=== PATIENT | female | born 1955 | race Caucasian/White ===

== ENCOUNTER 2016-09-02 21:47 | Inpatient (IN) | payer OTHER, MEDICARE ==
[~2016-09-02] VITALS: Ht 167.6 cm; Wt 67.1 kg
[~2016-09-02 21:47] MED LIST: ALBU8I INH; ATEN-102 PO; DIAZ5 PO; ESTR1TAB PO; LEVO100T75 PO; LEXA20TA PO; MOME17I; ULTR50TA PO
--- NOTE | 2016-09-02 22:08 | PD ---
HPI Chief Complaint: Psychiatric Symptoms Time Seen by Provider: 22:08 Travel History International Travel<30 days: No Contact w/Intl Traveler<30days: No Traveled to known affect area: No History of Present Illness HPI 61-year-old female with history of migraines, the ED, mitral valve replacement, colostomy status post obstruction presents to the emergency department under [place] act her psychiatric evaluation. Patient has been demonstrating bizarre behavior. Patient is pacing the room and when asked what she is here for, she tells me that if I "am not likely need to get out." Patient is holding her colostomy that is all and states she is trying to "save as much fluid as she can for her body." An accurate history is unobtainable at this time. PFSH Past Medical History Arthritis: No Asthma: No Autoimmune Disease: No Anxiety: Yes Depression: Yes Heart Rhythm Problems: No Cancer: No Cardiovascular Problems: Yes (MITRAL VALVE PROLAPSED) High Cholesterol: No Chemotherapy: No Chest Pain: No Congestive Heart Failure: No COPD: No Cerebrovascular Accident: No Diabetes: No Endocrine: Yes Gastrointestinal Disorders: Yes GERD: Yes Genitourinary: No Headaches: Yes Hiatal Hernia: No Immune Disorder: No Implanted Vascular Access Dvce: Yes Musculoskeletal: Yes Neurologic: Yes Reproductive: No Respiratory: Yes Migraines: Yes Radiation Therapy: No Seizures: No Sickle Cell Disease: No Sleep Apnea: No Thyroid Disease: Yes Ulcer: No Menopausal: Yes : 1 Para: 1 Miscarriage: 0 : 0 Past Surgical History Abdominal Surgery: Yes (OSTOMY PLACE 6-13 SECONDARY TO BLOCKAGE) AICD: No Arteriovenous Shunt: No Cardiac Surgery: No Ear Surgery: No Endocrine Surgery: No Eye Surgery: No Genitourinary Surgery: No Gynecologic Surgery: No Hysterectomy: Yes (Total) Insulin Pump: No Joint Replacement: No Oral Surgery: No Pacemaker: No Thoracic Surgery: No Other Surgery: Yes (ILEOSTOMY 1979,REANASTOMOSIS OF ILEOSTOMY 1980) Social History Alcohol Use: Yes (Usually nightly...per pt...but not for past 3-4 nights.) Tobacco Use: Yes (1-2PPD usually - states none in 4-5 days.) Substance Use: No Allergies-Medications (Allergen,Severity, Reaction): Coded Allergies: Naproxen (Verified Allergy, Severe, Nausea/Vomiting, 09/02/16) Erythromycin (Verified Allergy, Mild, 09/02/16) SICK - Per pt. Ketoprofen (Verified Allergy, Mild, 09/02/16) SICK - Per pt. Darvon (Unverified Allergy, Unknown, 09/02/16) Per pt. Reported Meds & Prescriptions Reported Meds & Active Scripts Active Reported Zolpidem ER (Zolpidem Tartrate) 12.5 Mg Tab 12.5 Mg PO HS PRN Bupropion HCl 100 Mg Tab 300 Mg PO HS Nasonex Nasal [place] (Mometasone Furoate) 50 Mcg/Act Naspr 2 [place] EACH NARE DAILY Levothyroxine (Levothyroxine Sodium) 100 Mcg Tab 100 Mcg PO DAILY Estradiol 1 Mg Tab 1 Mg PO DAILY Lexapro (Escitalopram Oxalate) 20 Mg Tab 20 Mg PO DAILY Diazepam 5 Mg Tab 5 Mg PO BID Atenolol 50 Mg Tab 50 Mg PO DAILY Proair Hfa 8.5 GM Inh (Albuterol Sulfate) 90 Mcg/Act Aer 2 Puff INH Q4-6H PRN 108 mcg/actuation Review of Systems ROS Limitations: Altered Mental Status, Uncooperative, Psychotic Physical Exam Exam Limitations: Poor Historian, Uncooperative, Psychotic Narrative GENERAL: Well-nourished, well-developed female patient, ambulatory with a nonantalgic gait, no acute distress. Patient is responding to internal stimuli. She is responding to us with an appropriate answers. His platelets are behavior. SKIN: Warm and dry. HEAD: Normocephalic. EYES: No scleral icterus. No injection or drainage. NECK: Supple, trachea midline. No JVD or lymphadenopathy. CARDIOVASCULAR: Tachycardic rate and rhythm without murmurs, gallops, or rubs. RESPIRATORY: Breath sounds equal bilaterally. No accessory muscle use. GASTROINTESTINAL: Abdomen rotund, soft, non-tender. Right lower quadrant colostomy in place. MUSCULOSKELETAL: No cyanosis, or edema. BACK: Nontender without obvious deformity. No CVA tenderness. Data Data Last Documented VS Vital Signs Date Time Temp Pulse Resp B/P Pulse Ox O2 Delivery O2 Flow Rate FiO2 09/02/16 22:24 98.1 120 18 134/76 98 Orders Complete Blood Count With Diff (09/02/16 21:51) Basic Metabolic Panel (Bmp) (09/02/16 21:51) Urinalysis - C+S If Indicated (09/02/16 21:51) Drug Screen, Random Urine (09/02/16 21:51) Alcohol (Ethanol) (09/02/16 21:51) Psych Screen (09/02/16 21:51) Lorazepam Inj (Ativan Inj) (09/02/16 22:15) Labs Laboratory Tests Test 09/02/16 22:30 White Blood Count 19.9 TH/MM3 Red Blood Count 4.60 MIL/MM3 Hemoglobin 13.7 GM/DL Hematocrit 40.9 % Mean Corpuscular Volume 88.8 FL Mean Corpuscular Hemoglobin 29.7 PG Mean Corpuscular Hemoglobin 33.5 % Concent Red Cell Distribution Width 14.0 % Platelet Count 372 TH/MM3 Mean Platelet Volume 8.6 FL Neutrophils (%) (Auto) 86.3 % Lymphocytes (%) (Auto) 7.2 % Monocytes (%) (Auto) 5.6 % Eosinophils (%) (Auto) 0.3 % Basophils (%) (Auto) 0.6 % Neutrophils # (Auto) 17.2 TH/MM3 Lymphocytes # (Auto) 1.4 TH/MM3 Monocytes # (Auto) 1.1 TH/MM3 Eosinophils # (Auto) 0.1 TH/MM3 Basophils # (Auto) 0.1 TH/MM3 CBC Comment DIFF FINAL Differential Comment Sodium Level 136 MEQ/L Potassium Level 4.0 MEQ/L Chloride Level 100 MEQ/L Carbon Dioxide Level 21.3 MEQ/L Anion Gap 15 MEQ/L Blood Urea Nitrogen 12 MG/DL Creatinine 1.26 MG/DL Estimat Glomerular Filtration 43 ML/MIN Rate Random Glucose 107 MG/DL Calcium Level 9.5 MG/DL Ethyl Alcohol Level LESS THAN 3 MG/DL MDM Medical Decision Making Medical Screen Exam Complete: Yes Emergency Medical Condition: Yes Medical Record Reviewed: Yes Differential Diagnosis Mood disorder versus acute psychosis versus UTI versus personality disorder Narrative Course 61-year-old female presents to the emergency department for evaluation. Patient appears without distress however she is very bizarre, pacing, and uncooperative completely with exam. She is unable to provide an accurate history. CBC is with leukocytosis of 19. Urine has not yet been collected. 0100 patient is signed out to Sonido Garcia for further evaluation and disposition. No acute lab abnormality, she can be medically cleared for psychiatric screen. Diagnosis Primary Impression: Acute psychosis Condition: Stable Glenny Scott Sep 02, 2016 22:08
[2016-09-02] MEDS ORDERED: LORazepam 2 MG/ML VIAL IM ONE (22:15)
[2016-09-02 22:24] VITALS: BP 134/76; PULSE 120; RESP 18; TEMP 98.1; O2SAT 98
[2016-09-02 22:52] LABS: AUTOMATED NEUTROPHIL # 17.2 TH/MM3 (1.8-7.7); BASOPHIL # 0.1 TH/MM3 (0-0.2); BASOPHIL % 0.6 % (0.0-2.0); EOSINOPHIL # 0.1 TH/MM3 (0-0.4); EOSINOPHIL % 0.3 % (0.0-4.0); HEMATOCRIT 40.9 % (35.0-46.0); HEMO FLAGS DIFF FINAL; LYMPH % 7.2 % (9.0-44.0); LYMPHOCYTE # 1.4 TH/MM3 (1.0-4.8); MEAN CELL VOLUME 88.8 FL (80.0-100.0); MEAN CORPUSCULAR HEMOGLOBIN 29.7 PG (27.0-34.0); MEAN CORPUSCULAR HGB CONC 33.5 % (32.0-36.0); MONO % 5.6 % (0.0-8.0); NEUT % 86.3 % (16.0-70.0); PLATELET COUNT 372 TH/MM3 (150-450); WHITE BLOOD COUNT 19.9 TH/MM3 (4.0-11.0)
[2016-09-02] MEDS ORDERED: ALBUAER3 INH (23:00)
[2016-09-02] MEDS ORDERED: ATEN50TA PO (23:00)
[2016-09-02] MEDS ORDERED: DIAZ5TAB PO (23:00)
[2016-09-02] MEDS ORDERED: LEVO100T5 PO (23:00)
[2016-09-02] MEDS ORDERED: ESTR1TAB PO (23:00)
[2016-09-02] MEDS ORDERED: LEXA20TA PO (23:00)
[2016-09-02] MEDS ORDERED: MOME17I EACH NARE (23:00)
[2016-09-02 23:17] LABS: ANION GAP 15 MEQ/L (5-15); BICARBONATE 21.3 MEQ/L (21.0-32.0); BLOOD UREA NITROGEN 12 MG/DL (7-18); CHLORIDE 100 MEQ/L (98-107); GLOMERULAR FILTRATION RATE 43 ML/MIN (>89); SODIUM (NA) 136 MEQ/L (136-145)
[2016-09-02] MEDS ORDERED: ZOLP12.5 PO (23:33)
[2016-09-02] MEDS ORDERED: BUPR100T4 PO (23:33)
[2016-09-03 02:02] VITALS: BP 105/62; PULSE 103; RESP 18; O2SAT 98
[2016-09-03 04:33] LABS: BLOOD, URINE NEG (NEG); COMMENT (UR) CULT NOT INDICATED; CULTURE IF INDICATED CULT NOT INDICATED; GLUCOSE,URINE NEG (NEG); HYALINE CAST, URINE 1 /lpf (RARE); KETONE, URINE 10 mg/dL (NEG); MUCUS URINE FEW /lpf (OCC); NITRITE,URINE NEG (NEG); PH, URINE 5.5 (5.0-8.5); SQUAMOUS EPITHELIAL CELL URINE <1 /hpf (0-5); URINE COLOR YELLOW (YELLW/STRAW)
--- NOTE | 2016-09-03 05:08 | PD ---
Physical Exam Narrative Patient was signed out to me by Glenny TORRES pending UA results. Please see her H&P for full details. Data Data Last Documented VS Vital Signs Date Time Temp Pulse Resp B/P Pulse Ox O2 Delivery O2 Flow Rate FiO2 09/03/16 02:02 103 18 105/62 98 Room Air 09/02/16 22:24 98.1 Orders Complete Blood Count With Diff (09/02/16 21:51) Basic Metabolic Panel (Bmp) (09/02/16 21:51) Urinalysis - C+S If Indicated (09/02/16 21:51) Drug Screen, Random Urine (09/02/16 21:51) Alcohol (Ethanol) (09/02/16 21:51) Psych Screen (09/02/16 21:51) Lorazepam Inj (Ativan Inj) (09/02/16 22:15) Chest, Single Ap (09/03/16 05:02) Labs Laboratory Tests Test 09/02/16 09/03/16 22:30 03:56 White Blood Count 19.9 TH/MM3 Red Blood Count 4.60 MIL/MM3 Hemoglobin 13.7 GM/DL Hematocrit 40.9 % Mean Corpuscular Volume 88.8 FL Mean Corpuscular Hemoglobin 29.7 PG Mean Corpuscular Hemoglobin 33.5 % Concent Red Cell Distribution Width 14.0 % Platelet Count 372 TH/MM3 Mean Platelet Volume 8.6 FL Neutrophils (%) (Auto) 86.3 % Lymphocytes (%) (Auto) 7.2 % Monocytes (%) (Auto) 5.6 % Eosinophils (%) (Auto) 0.3 % Basophils (%) (Auto) 0.6 % Neutrophils # (Auto) 17.2 TH/MM3 Lymphocytes # (Auto) 1.4 TH/MM3 Monocytes # (Auto) 1.1 TH/MM3 Eosinophils # (Auto) 0.1 TH/MM3 Basophils # (Auto) 0.1 TH/MM3 CBC Comment DIFF FINAL Differential Comment Sodium Level 136 MEQ/L Potassium Level 4.0 MEQ/L Chloride Level 100 MEQ/L Carbon Dioxide Level 21.3 MEQ/L Anion Gap 15 MEQ/L Blood Urea Nitrogen 12 MG/DL Creatinine 1.26 MG/DL Estimat Glomerular Filtration 43 ML/MIN Rate Random Glucose 107 MG/DL Calcium Level 9.5 MG/DL Ethyl Alcohol Level LESS THAN 3 MG/DL Urine Color YELLOW Urine Turbidity CLEAR Urine pH 5.5 Urine Specific [place] 1.007 Urine Protein TRACE mg/dL Urine Glucose (UA) NEG mg/dL Urine Ketones 10 mg/dL Urine Occult Blood NEG Urine Nitrite NEG Urine Bilirubin NEG Urine Urobilinogen LESS THAN 2.0 MG/DL Urine Leukocyte Esterase NEG Urine RBC 1 /hpf Urine WBC LESS THAN 1 /hpf Urine Squamous Epithelial <1 /hpf Cells Urine Hyaline Casts 1 /lpf Urine Mucus FEW /lpf Microscopic Urinalysis Comment CULT NOT INDICATED Urine Opiates Screen POS Urine Barbiturates Screen NEG Urine Amphetamines Screen NEG Urine Benzodiazepines Screen POS Urine Cocaine Screen NEG Urine Cannabinoids Screen NEG MDM Supervised Visit with MATHIEU: No Narrative Course Patient was seen and evaluated. Answers questions appropriately. Patient denies any pain anywhere. Denies any chest pain, shortness of breath, abdominal pain, cough, nausea, vomiting, being on steroids recently. Labs were reviewed along with UA. No definitive source for the elevated white blood cell count. This may be stress-induced however I discussed patient with Dr. Argueta who recommends checking a chest x-ray prior to medically clearing the patient. Patient was seen and examined. Labs were obtained and reviewed. Chest x-ray was read by radiologist. Patient medically cleared for further treatment and evaluation by psych. Final disposition per psych. Diagnosis Primary Impression: Acute psychosis Additional Impression: Leukocytosis, unspecified Additional Instruction: Follow-up with her primary care physician next week for reevaluation of your elevated white blood cell count and possible hematology referral if needed. Condition: Stable Celso Garcia Sep 03, 2016 05:08
[2016-09-03 05:40] LABS: AMPHETAMINE, URINE NEG (NEG); BARBITURATES, URINE NEG (NEG); COCAINE, URINE NEG (NEG)
--- NOTE | 2016-09-03 05:57 | RADRPT ---
EXAM DATE/TIME: 09/03/2016 05:16 [facility] COMPARISON: No previous studies available for comparison. INDICATIONS : Shortness of breath. MEDICAL HISTORY : None. SURGICAL HISTORY : None. ENCOUNTER: Initial ACUITY: 1 day PAIN SCORE: 0/10 LOCATION: Bilateral chest FINDINGS: A single view of the chest demonstrates the lungs to be symmetrically aerated without evidence of mas s, infiltrate or effusion. The cardiomediastinal contours are unremarkable. Osseous structures are intact. CONCLUSION: No acute disease. Hima Estrada MD on September 03, 2016 at 5:55 Board Certified Radiologist. This report was verified electronically.
[2016-09-03 09:21] VITALS: BP 110/55; PULSE 85; RESP 16; TEMP 98.4; O2SAT 96
--- NOTE | 2016-09-03 09:27 | HHI.HP ---
Provisional Diagnosis Admission Date [place] I. Unspecified psychosis, r/o schizoaffective disorder, bipolar type, r/o bipolar disorder, most recent episode manic, with psychotic features. [place] II. Deferred [place] III. Hypothyroidism, chronic disease, [place] IV. Poor family and social support [place] V. 35 Certification of Person's Competence To Provide Express and Informed Consent I have personally examined Emeli Perera , a person being served at [facility] on, Sep 03, 2016 09:25. Express and informed consent means consent voluntarily given in writing, by a competent person, after sufficient explanation and disclosure of the subject matter involved to enable the person to make a knowing and willful decision without any element of force, fraud, deceit, duress, or other form of constraint or coercion. This person is 18 years of age or older, is not now known to be incompetent to consent to treatment with a guardian advocate, and does not have a health care surrogate or proxy currently making medical treatment decisions. I have found this person to be one of the following: [] Competent to provide express and informed consent, as defined above, for voluntary admission to this facility and is competent to provide express and informed consent for treatment. He/she has the consistent capacity to make well reasoned, willful, and knowing decisions concerning his or her medical or mental health treatment. The person fully and consistently understands the purpose of the admission for examination/placement and is fully capable of personally exercising all rights assured [place] Incompetent to provide express and informed consent to voluntary admission, and this is incompetent to provide express and informed consent to treatment. The person must be transferred to involuntary status and a petition for a guardian advocate filed with the Circuit Court. [X] Refusing to provide express and informed consent to voluntary admission but is competent to provide express and informed consent for treatment. The person must be discharged or transferred to involuntary status. Form shall be completed within 24 hours of a person's arrival at the receiving facility and filed in the clinical record of each person: 1. Admitted on a voluntary basis 2. Permitted to provide express and informed consent to his/her own treatment 3. Allowed to transfer from involuntary to voluntary status 4. Prior to permitting a person to consent to his or her own treatment after having been previously found incompetent to consent to treatment. History of Present Illness Capacity: Has Capacity HPI The patient is a 61-year-old woman, domicile with her sister, , but , unemployed, with uncertain uncertain psychiatric history, she denies, she denies previous hospitalizations, but she is on Escitalopram, Wellbutrin and Valium, but she refused to disclose the reason, medical history of migraines, chron disease, hypothyroidism, mitral valve replacement, colostomy status post obstruction, who presents to the emergency department under [place] act her psychiatric evaluation. On initial evaluation in the ER "Patient has been demonstrating bizarre behavior. Patient is pacing the room and when asked what she is here for, she tells me that if I "am not likely need to get out." Patient is holding her colostomy that is all and states she is trying to "save as much fluid as she can for her body." An accurate history is unobtainable at this time". On psychiatric evaluation she was guarded, poorly cooperative, disorganized and tangential. However, she was redirectable. Patient is states that the reason she was brought to the hospital is because she has an electrical current inside her body "telling me what to do, telling me sometimes to hurt people and other times to hurt myself", she also states that "I do not psych reword this electrical current is coming from, but sometimes I can see it running into the televisions, radio and other electronic devices", she says that she has been having this electrical current inside her body for about 4 weeks now. Patient described her mood as very happy, she port increased energy, decreased need to sleep, increased necessity to talk, and a sensation of "seeing every very around as a threat". She denies depressive symptoms, such as anhedonia, hopelessness, helplessness, suicidal and homicidal ideation. She denies visual and auditory hallucinations. On evaluation patient has decreased concentration capacity, she is talkative, but not pressured speech, frequent loosening of association, but she is fully oriented 3, without any gross cognitive impairment observed. Patient denies the use of drugs and alcohol. Review of Systems Constitutional: DENIES: Diaphoretic episodes, Fatigue, Fever, Weight gain, Weight loss, Chills, Dizziness, Change in appetite, Night Sweats Endocrine: DENIES: Abnorml menstrual pattern, Heat/cold intolerance, Polydipsia , Polyuria, Polyphagia Eyes: DENIES: Blurred vision, Diplopia, Eye inflammation, Eye pain, Vision loss , Photosensitivity, Double Vision Ears, nose, mouth, throat: DENIES: Tinnitus, Hearing loss, Vertigo, Nasal discharge, Oral lesions, Throat pain, Hoarseness, Ear Pain, Running Nose, Epistaxis, Sinus Pain, Toothache, Odynophagia Respiratory: DENIES: Apneas, Cough, Snoring, Wheezing, Hemoptysis, Sputum production, Shortness of breath Cardiovascular: DENIES: Chest pain, Palpitations, Syncope, Dyspnea on Exertion , PND, Lower Extremity Edema, Orthopnea, Claudication Genitourinary: DENIES: Abnormal vaginal bleeding, Dysmenorrhea, Dyspareunia, Sexual dysfunction, Urinary frequency, Urinary incontinence, Urgency, Hematuria , Dysuria, Nocturia, Vaginal discharge Musculoskeletal: DENIES: Joint pain, Muscle aches, Stiffness, Joint Swelling, Back pain, Neck pain Integumentary: DENIES: Abnormal pigmentation, Pruritus, Rash, Nail changes, Breast masses, Breast skin changes, Nipple discharge Hematologic/lymphatic: DENIES: Bruising, Lymphadenopathy Immunologic/allergic: DENIES: Eczema, Urticaria Neurologic: DENIES: Abnormal gait, Headache, Localized weakness, Paresthesias, Seizures, Speech Problems, Tremor, Poor Balance Psychiatric: COMPLAINS OF: Mood changes, Agitation, Delusions Past Family Social History Coded Allergies: Naproxen (Verified Allergy, Severe, Nausea/Vomiting, 09/02/16) Erythromycin (Verified Allergy, Mild, 09/02/16) SICK - Per pt. Ketoprofen (Verified Allergy, Mild, 09/02/16) SICK - Per pt. Darvon (Unverified Allergy, Unknown, 09/02/16) Per pt. Reported Medications Zolpidem ER 12.5 Mg Tab12.5 Mg PO HS PRN (INSOMNIA) Ref 0 09/02/16 Bupropion HCl 100 Mg Xyn023 Mg PO HS Ref 0 09/02/16 Mometasone Nasal [place] (Nasonex Nasal [place])50 Mcg/Act Naspr2 [place] EACH NARE DAILY #1 BOTTLE Ref 0 09/02/16 Levothyroxine 100 Mcg Ipr660 Mcg PO DAILY #30 TAB Ref 0 09/02/16 Estradiol 1 Mg Tab1 Mg PO DAILY #30 TAB Ref 0 09/02/16 Escitalopram (Lexapro)20 Mg Tab20 Mg PO DAILY #30 TAB Ref 0 09/02/16 Diazepam 5 Mg Tab5 Mg PO BID Ref 0 09/02/16 Atenolol 50 Mg Tab50 Mg PO DAILY #30 TAB Ref 0 09/02/16 Albuterol 8.5 GM Inh (Proair Hfa 8.5 GM Inh)90 Mcg/Act Aer2 Puff INH Q4-6H PRN ( SHORTNESS OF BREATH) #1 INHALER Ref 0 108 mcg/actuation 09/02/16 Current Medications Medications (Trade) Dose Ordered Sig/Evie Route Start Time Stop Time Status Last Admin (Ativan) 1 mg Q6H PRN PO 09/03/16 09:30 UNV (Ativan Inj) 1 mg Q6H PRN IM 09/03/16 09:30 UNV (Ativan) 0.5 mg Q12H PRN PO 09/03/16 09:30 UNV (Ativan Inj) 0.5 mg Q12H PRN IM 09/03/16 09:30 UNV (Tylenol) 650 mg Q4H PRN PO 09/03/16 09:30 UNV (Milk Of Magnesia Liq) 30 ml DAILY PRN PO 09/03/16 09:30 UNV (Mag-Al Plus Susp Liq) 30 ml Q6H PRN PO 09/03/16 09:30 UNV Physical Exam Vital Signs Vital Signs Date Time Temp Pulse Resp B/P Pulse Ox O2 Delivery O2 Flow Rate FiO2 09/03/16 02:02 103 18 105/62 98 Room Air 09/02/16 22:24 98.1 Mental Status Examination Appearance woman, age appearing, good hygiene, [facility], guarded, poorly cooperative Speech: Rapid Orientation: x3 Memory: Unremarkable Thought Process: Flight of Ideas, Goal Directed, Loose Association, Tangential Thought Content: Paranoid, Ideas of Reference Hallucination Type: None Attention and Concentration: Easily Distracted Suicidal Ideation: No Previous Suicide Attempts: No Homicidal Ideation: No Insight: Poor Judgement: Impulsive Affect: Irritable, Oppositional Mood: Irritable, Manic Motor Activity: Normal gait Assessment & Plan Problem List: (1) Bipolar disorder, current episode manic w/o psychotic features, severe Assessment & Plan: The patient is a 61-year-old woman with uncertain psychiatric history, patient is minimally cooperative, guarded and paranoid As per [place] act patient was found acting very disorganized, restless, manic, acting extremely bizarre On psychiatric evaluation patient seems to be internally preoccupied, with the delusion of being controlled by an electrical current telling her what to do, sometimes telling her to hurt people or hurt herself. She is also tangential, visibly disorganized, but lately related, very talkative , reporting elevated mood, decreased need to sleep and poor concentration capacity. She denies suicidal or homicidal ideation, she denies visual and auditory hallucinations. No aggressive behavior or agitation observed at this moment. No gross cognitive impairment observed, patient is fully oriented and history. No collateral information available at this moment to complete psychiatric assessment. At this moment patient represents a danger to self and others and needs psychiatric admission for stabilization and medication management. We will start olanzapine 2.5 mg twice a day for psychosis and mood stabilization , also will order olanzapine 5 mg IM when necessary aggressive behavior or agitation Will transfer to the psychiatric [facility] once medically cleared Patient has an elevated WBCs, this issue was discussed with primary ER team, but they medically cleared the patient and could not find any source for this WBCs alteration, Will consult hospitalist to reassess this issue, also will place consult for psychiatric second opinion. ICD Code: F31.13 Assessment & Plan Estimated LOS: Fransico Sen MD Sep 03, 2016 09:27
[2016-09-03] MEDS ORDERED: ALUMINUM/MAGNESIUM/SIMETH 30 ML CUP PO PRN (09:30)
[2016-09-03] MEDS ORDERED: LORazepam 0.5 MG TAB PO PRN (09:30)
[2016-09-03] MEDS ORDERED: LORazepam 2 MG/ML VIAL IM PRN ×2 (09:30)
[2016-09-03] MEDS ORDERED: OLANZapine IM 10 MG VIAL IM PRN (09:30)
[2016-09-03] MEDS ORDERED: MAGNESIUM HYDROXIDE SUSP 30 ML CUP PO PRN (09:30)
[2016-09-03] MEDS ORDERED: LORazepam 1 MG TAB PO PRN (09:30)
[2016-09-03] MEDS: ACETAMINOPHEN 325 MG TAB PO PRN (09:52)
[2016-09-03] MEDS ORDERED: SODIUM CHLOR 0.9% 1000 ML INJ 1,000 ML IV ONE (12:30)
--- NOTE | 2016-09-03 13:00 | PD.CONS ---
HPI Service [facility] Consult Requested By Psychiatric services Reason for Consult Leukocytosis Primary Care Physician No Primary Care Physician Diagnoses: History of Present Illness This is a 61-year-old female patient with past medical history which includes Crohn's disease with ostomy placement, hypothyroidism, mitral valve prolapse status post mitral valve replacement, hypertension, irritable bowel syndrome. Patient was brought into the emergency department under [place] act is currently admitted to inpatient psychiatric center we have been consulted for assistance with evaluation of leukocytosis white blood cell count noted to be at 19.9 with neutrophil 86.3%, UA negative leukocyte esterase, chest x-ray reviewed no acute process identified. Creatinine 1.26 GFR 43 last renal indices in 2013 revealed creatinine of 0.63 and GFR of 97. Patient reports that when she gets like, "this," she does not eat much reports she has eaten proximally once in the past 3 days also reports she is not drinking very much. Patient denies fevers chills cough congestion sore throat chest pain nausea vomiting abdominal pain diarrhea constipation. Also there are no open wounds identified on skin exam. Review of Systems Other All other systems reviewed and negative except as mentioned in history of present illness Past Family Social History Allergies: Coded Allergies: Naproxen (Verified Allergy, Severe, Nausea/Vomiting, 09/02/16) Erythromycin (Verified Allergy, Mild, 09/02/16) SICK - Per pt. Ketoprofen (Verified Allergy, Mild, 09/02/16) SICK - Per pt. Darvon (Unverified Allergy, Unknown, 09/02/16) Per pt. Past Medical History Crohn's disease with ostomy placement, hypothyroidism, mitral valve prolapse status post mitral valve replacement, hypertension, irritable bowel syndrome Past Surgical History Ileostomy with reversal and later redo ostomy 2012, appendectomy, tonsillectomy, hysterectomy and mitral valve replacement Reported Medications Zolpidem ER (Zolpidem Tartrate) 12.5 Mg Tab 12.5 Mg PO HS PRN Bupropion HCl 100 Mg Tab 300 Mg PO HS Nasonex Nasal [place] (Mometasone Furoate) 50 Mcg/Act Naspr 2 [place] EACH NARE DAILY Levothyroxine (Levothyroxine Sodium) 100 Mcg Tab 100 Mcg PO DAILY Estradiol 1 Mg Tab 1 Mg PO DAILY Lexapro (Escitalopram Oxalate) 20 Mg Tab 20 Mg PO DAILY Diazepam 5 Mg Tab 5 Mg PO BID Atenolol 50 Mg Tab 50 Mg PO DAILY Proair Hfa 8.5 GM Inh (Albuterol Sulfate) 90 Mcg/Act Aer 2 Puff INH Q4-6H PRN 108 mcg/actuation Family History Positive for father having heart disease Social History Patient reports she usually has 2-3 alcoholic drinks per day Patient reports she does smoke the past 18 years 2 packs last her approximately one week Physical Exam Vital Signs Vital Signs Date Time Temp Pulse Resp B/P Pulse Ox O2 Delivery O2 Flow Rate FiO2 09/03/16 09:21 98.4 85 16 110/55 96 Room Air 09/03/16 02:02 103 18 105/62 98 Room Air 09/02/16 22:24 98.1 120 18 134/76 98 Physical Exam GENERAL: This is a well-nourished, well-developed patient, in no apparent distress. SKIN: No rashes, ecchymoses or lesions. Cool and dry. HEAD: Atraumatic. Normocephalic. No temporal or scalp tenderness. EYES: Extraocular motions intact. No scleral icterus. No injection or drainage. ENT: Nose without bleeding, purulent drainage or septal hematoma. Throat without erythema, tonsillar hypertrophy or exudate. Uvula midline. Airway patent. NECK: Trachea midline. No JVD or lymphadenopathy. Supple, nontender, no meningeal signs. CARDIOVASCULAR: Regular rate and rhythm without murmurs, gallops, or rubs. RESPIRATORY: Clear to auscultation. Breath sounds equal bilaterally. No wheezes , rales, or rhonchi. GASTROINTESTINAL: Abdomen soft, non-tender, nondistended. Ostomy in place with soft/liquid brown stool present MUSCULOSKELETAL: Extremities without clubbing, cyanosis, or edema. No joint tenderness, effusion, or edema noted. No calf tenderness. Negative Homans sign bilaterally. NEUROLOGICAL: Awake and alert. Motor and sensory grossly within normal limits. Five out of 5 muscle strength in all muscle groups. Normal speech. Laboratory Laboratory Tests Test 09/02/16 09/03/16 22:30 03:56 White Blood Count 19.9 Red Blood Count 4.60 Hemoglobin 13.7 Hematocrit 40.9 Mean Corpuscular Volume 88.8 Mean Corpuscular Hemoglobin 29.7 Mean Corpuscular Hemoglobin 33.5 Concent Red Cell Distribution Width 14.0 Platelet Count 372 Mean Platelet Volume 8.6 Neutrophils (%) (Auto) 86.3 Lymphocytes (%) (Auto) 7.2 Monocytes (%) (Auto) 5.6 Eosinophils (%) (Auto) 0.3 Basophils (%) (Auto) 0.6 Neutrophils # (Auto) 17.2 Lymphocytes # (Auto) 1.4 Monocytes # (Auto) 1.1 Eosinophils # (Auto) 0.1 Basophils # (Auto) 0.1 CBC Comment DIFF FINAL Differential Comment Sodium Level 136 Potassium Level 4.0 Chloride Level 100 Carbon Dioxide Level 21.3 Anion Gap 15 Blood Urea Nitrogen 12 Creatinine 1.26 Estimat Glomerular Filtration 43 Rate Random Glucose 107 Calcium Level 9.5 Ethyl Alcohol Level LESS THAN 3 Urine Color YELLOW Urine Turbidity CLEAR Urine pH 5.5 Urine Specific [place] 1.007 Urine Protein TRACE Urine Glucose (UA) NEG Urine Ketones 10 Urine Occult Blood NEG Urine Nitrite NEG Urine Bilirubin NEG Urine Urobilinogen LESS THAN 2.0 Urine Leukocyte Esterase NEG Urine RBC 1 Urine WBC LESS THAN 1 Urine Squamous Epithelial <1 Cells Urine Hyaline Casts 1 Urine Mucus FEW Microscopic Urinalysis Comment CULT NOT INDICATED Urine Opiates Screen POS Urine Barbiturates Screen NEG Urine Amphetamines Screen NEG Urine Benzodiazepines Screen POS Urine Cocaine Screen NEG Urine Cannabinoids Screen NEG Result Diagram: 09/02/16 2230 09/02/16 2230 Imaging Last Impressions Chest X-Ray 09/03/16 0502 Signed Impressions: Service Date/Time: Monday, September 03, 2016 05:16 - CONCLUSION: No acute disease. Hima Estrada MD Assessment and Plan Assessment and Plan This is a 61-year-old female patient with past medical history which includes Crohn's disease with ostomy placement, hypothyroidism, mitral valve prolapse status post mitral valve replacement, hypertension, irritable bowel syndrome. Patient was brought into the emergency department under [place] act is currently admitted to inpatient psychiatric center we have been consulted for assistance with evaluation of leukocytosis white blood cell count noted to be at 19.9 with neutrophil 86.3%, UA negative leukocyte esterase, chest x-ray reviewed no acute process identified. Creatinine 1.26 GFR 43 last renal indices in 2013 revealed creatinine of 0.63 and GFR of 97 Leukocytosis-patient is afebrile UA reviewed by myself as well as Dr. Key negative leukocyte esterase- although ketones are present, chest x-ray also reviewed by myself as well as Dr. Key no acute process identified Likely related to dehydration as patient has not been eating or drinking for the past 3 days 1 L fluid bolus before patient goes to the psychiatric center Encourage by mouth fluid intake once patient does arrive to psychiatric center Acute kidney injury likely related to dehydration- give 1 L fluid bolus and encourage by mouth fluid intake Hypothyroidism restart home Synthroid dose 100 mcg daily check TSH Hypertension resume patient's home metoprolol 50 mg twice a day DVT prophylaxis patient is ambulatory Discussed with ER provider, RN and patient Written by Yamilka Early, acting as scribe for Dr. Key on 09/03/16 at 12:59. The documentation accurately reflects the work performed [id number] by me on 09/03/16 at 12:59 Yamilka Early Sep 03, 2016 13:00 Ramakrishna Key MD Sep 04, 2016 14:21
[2016-09-03 13:03] VITALS: BP 105/72; PULSE 80; RESP 16; O2SAT 98
[2016-09-03 14:38] VITALS: BP 102/56; PULSE 86; RESP 18; TEMP 98.1; O2SAT 98
[2016-09-03 19:13] VITALS: BP 98/61; PULSE 86; RESP 18; TEMP 98.2; O2SAT 86
[2016-09-03] MEDS: OLANZapine 2.5 MG TAB PO SCH (20:47)
[2016-09-04 05:30] VITALS: BP 89/54; PULSE 62; RESP 17; TEMP 98.2; O2SAT 98
[2016-09-04] MEDS: ESTRADIOL 1 MG TAB PO SCH (08:26)
[2016-09-04] MEDS: OLANZapine 2.5 MG TAB PO SCH ×2 (08:27→21:34)
[2016-09-04] MEDS: LEVOTHYROXINE SODIUM 100 MCG TAB PO SCH (08:27)
[2016-09-04] MEDS ORDERED: ATENOLOL 50 MG TAB PO SCH (09:00)
[2016-09-04 09:10] LABS: AUTOMATED NEUTROPHIL # 5.8 TH/MM3 (1.8-7.7); BASOPHIL # 0.1 TH/MM3 (0-0.2); BASOPHIL % 1.1 % (0.0-2.0); EOSINOPHIL # 0.4 TH/MM3 (0-0.4); EOSINOPHIL % 4.3 % (0.0-4.0); HEMATOCRIT 41.4 % (35.0-46.0); HEMO FLAGS DIFF FINAL; LYMPH % 17.1 % (9.0-44.0); LYMPHOCYTE # 1.4 TH/MM3 (1.0-4.8); MEAN CELL VOLUME 91.4 FL (80.0-100.0); MEAN CORPUSCULAR HEMOGLOBIN 30.1 PG (27.0-34.0); MEAN CORPUSCULAR HGB CONC 32.9 % (32.0-36.0); MONO % 7.1 % (0.0-8.0); NEUT % 70.4 % (16.0-70.0); PLATELET COUNT 283 TH/MM3 (150-450); RED BLOOD COUNT 4.52 MIL/MM3 (4.00-5.30); RED CELL DISTRIBUTION WIDTH 14.3 % (11.6-17.2); WHITE BLOOD COUNT 8.3 TH/MM3 (4.0-11.0)
[2016-09-04 09:31] LABS: ANION GAP 10 MEQ/L (5-15); BICARBONATE 22.5 MEQ/L (21.0-32.0); BLOOD UREA NITROGEN 14 MG/DL (7-18); CHLORIDE 106 MEQ/L (98-107); GLOMERULAR FILTRATION RATE 72 ML/MIN (>89); POTASSIUM 3.7 MEQ/L (3.5-5.1); SODIUM (NA) 138 MEQ/L (136-145)
[2016-09-04 09:41] LABS: HDL CHOLESTEROL 86.3 MG/DL (40.0-60.0); LDL CHOLESTEROL 107 MG/DL (0-99)
[2016-09-04 10:10] VITALS: BP 98/60; PULSE 71; RESP 16; TEMP 98.3; O2SAT 96
--- NOTE | 2016-09-04 11:59 | HHI.PYPN ---
Subjective Remarks Patient seen and examined with nursing staff. Please note that this document also serves is my second opinion for involuntary psychiatric hospitalization under the Polanco act. Chart reviewed. I note the patient was seen in consultation by Dr. Beltrán for auditory hallucinations and 2014. Case discussed with nursing staff who reports that patient continues to believe that electrical current is coming to hurt her in some way. On my examination today, patient reports that she "feels like someone is working on me and trying to straighten things out." She denies audiovisual hallucinations but says "if I'm focused on a positive thing, I hear some music. If I am focused on a negative thing, it could be worse on my body." She says that she came into the hospital because she feared for her life but "decided it wasn't really happening." She denies any homicidal ideation and denies any suicidal ideation but says that when she was feeling so acutely distressed she did contemplate ending her life. She cites several psychosocial stressors including her son's seeking a liver and kidney transplant as well as a pending divorce. The remainder of the psychiatric ROS is negative. Past psychiatric history: Patient denies any history of psychiatric illness, although I do see that she had a consultation with Dr. Beltrán as I said. Family history: Patient reports family history of bipolar disorder in the mother 's side of the family. Her maternal aunt and uncle also reportedly killed themselves. Chemical dependency history: Patient reports that she drinks 2 or 3 mixed drinks a night. No reported history of blackouts, DTs or seizures. Denies other substance use. Social history: Patient is somewhat evasive here. She reports that she lives alone. She is and seeking a divorce. 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 Past medical history: Includes a history of Crohn's and hypothyroidism. Review of Systems ROS Limitations: Poor Historian Other No reported somatic complaints today. Patient does have a colostomy. Objective Alert: Yes [place]: Person, Place, Date Mood: Anxious Affect: Blunted Memory Intact: Comment (not formally assessed) Hallucinations: Other (possibly some delusional perceptions, it is unclear.) Delusions: Yes Delusion Type: Paranoid Suicidal: Ideation (none currently but see above) Homicidal: Ideation (no HI) Insight/Judgement Poor Remarks Thought processes fairly linear. Speech within normal limits for rate, tone and volume. No motoric abnormalities noted. No signs of benzodiazepine or opiate withdrawal. Labs Test 09/04/16 08:16 White Blood Count 8.3 TH/MM3 Red Blood Count 4.52 MIL/MM3 Hemoglobin 13.6 GM/DL Hematocrit 41.4 % Mean Corpuscular Volume 91.4 FL Mean Corpuscular Hemoglobin 30.1 PG Mean Corpuscular Hemoglobin 32.9 % Concent Red Cell Distribution Width 14.3 % Platelet Count 283 TH/MM3 Mean Platelet Volume 8.6 FL Neutrophils (%) (Auto) 70.4 % Lymphocytes (%) (Auto) 17.1 % Monocytes (%) (Auto) 7.1 % Eosinophils (%) (Auto) 4.3 % Basophils (%) (Auto) 1.1 % Neutrophils # (Auto) 5.8 TH/MM3 Lymphocytes # (Auto) 1.4 TH/MM3 Monocytes # (Auto) 0.6 TH/MM3 Eosinophils # (Auto) 0.4 TH/MM3 Basophils # (Auto) 0.1 TH/MM3 CBC Comment DIFF FINAL Differential Comment Sodium Level 138 MEQ/L Potassium Level 3.7 MEQ/L Chloride Level 106 MEQ/L Carbon Dioxide Level 22.5 MEQ/L Anion Gap 10 MEQ/L Blood Urea Nitrogen 14 MG/DL Creatinine 0.81 MG/DL Estimat Glomerular Filtration 72 ML/MIN Rate Random Glucose 90 MG/DL Calcium Level 8.8 MG/DL Triglycerides Level 221 MG/DL Cholesterol Level 237 MG/DL LDL Cholesterol 107 MG/DL HDL Cholesterol 86.3 MG/DL Cholesterol/HDL Ratio 2.74 RATIO Thyroid Stimulating Hormone 1.030 uIU/ML [facility] reviewed. Leukocytosis has normalized. Renal function has improved. Toxicology positive for benzodiazepines and opiates. Urinalysis reviewed. Last Impressions Chest X-Ray 09/03/16 0502 Signed Impressions: Service Date/Time: Saturday, September 03, 2016 05:16 - CONCLUSION: No acute disease. Hima Estrada MD Vitals/IOs Vital Signs Date Time Temp Pulse Resp B/P Pulse Ox O2 Delivery O2 Flow Rate FiO2 09/04/16 10:10 98.3 71 16 98/60 96 09/03/16 13:03 Room Air Intake and Output 09/03/16 09/03/16 09/04/16 08:00 16:00 00:00 Intake Total 120 ml 240 ml Balance 120 ml 240 ml Assessment & Plan Problem List: (1) Bipolar disorder Assessment & Plan: Rule out substance-induced psychotic disorder ICD Code: F31.9 Assessment & Plan Given the circumstances of patient's initial presentation here in her presentation on my examination today, I concur that the patient meets criteria for involuntary psychiatric hospitalization under the [place] act, and I have completed the second opinion paperwork. Patient's mental status seems somewhat improved since receiving Zyprexa, although marginal blood pressures may prevent titration of this medication. I will continue with current dose for now and discontinue the Zyprexa I am order. Tenormin is on hold. Check a head CT as it is not clear if this mental status changes of relatively recent vintage. Monitor for signs of withdrawal. CIWA with Ativan. Seizure and fall precautions. Continue other medications and care as ordered. Appreciate hospitalist security sales consultant input. Justification for Cont. Inpt. Impairments in reality testing. Concern for impairments in safety. Discharge Planning Pending psychiatric stabilization. I will transfer the patient is a 2600 unit as this seems most appropriate for her current level of functioning. Request HC Surrog/Guard Advoc?: No Problem Qualifiers (1) Bipolar disorder: Qualified Code: F31.64 - Bipolar disorder, current episode mixed, severe, with psychotic features Moy Poe MD Sep 04, 2016 11:59
[2016-09-04] MEDS ORDERED: LORazepam 1 MG TAB PO PRN (12:00)
[2016-09-04] MEDS ORDERED: FLUMAZENIL 1 MG/10 ML VIAL IV PUSH PRN (12:00)
[2016-09-04] MEDS ORDERED: LORazepam 2 MG/ML VIAL IM PRN ×4 (12:00)
[2016-09-04] MEDS ORDERED: LORazepam 2 MG TAB PO PRN (12:00)
[2016-09-04 18:00] VITALS: BP 100/56; PULSE 86; RESP 16; TEMP 98; O2SAT 98
[2016-09-04] MEDS: ACETAMINOPHEN 325 MG TAB PO PRN (18:01)
--- NOTE | 2016-09-04 18:05 | RADRPT ---
EXAM DATE/TIME: 09/04/2016 17:26 [facility] COMPARISON: CT BRAIN W/O CONTRAST, May 03, 2014, 18:24. INDICATIONS : Altered mental status. RADIATION DOSE: 56.35 CTDIvol (mGy) MEDICAL HISTORY : None SURGICAL HISTORY : None. ENCOUNTER: Initial ACUITY: 1 day PAIN SCALE: 0/10 LOCATION: cranial TECHNIQUE: Multiple contiguous axial images were obtained of the head. Using automated exposure control and adj ustment of the mA and/or kV according to patient size, radiation dose was kept as low as reasonably a chievable to obtain optimal diagnostic quality images. FINDINGS: CEREBRUM: The ventricles are normal for age. No evidence of midline shift, mass lesion, hemorrhage or acute in farction. No extra-axial fluid collections are seen. POSTERIOR FOSSA: The cerebellum and brainstem are intact. The 4th ventricle is midline. The cerebellopontine angle i s unremarkable. EXTRACRANIAL: The visualized portion of the orbits is intact. SKULL: The calvaria is intact. No evidence of skull fracture. CONCLUSION: Negative noncontrast head CT. Slade Ford MD on September 04, 2016 at 18:04 Board Certified Radiologist. This report was verified electronically.
[2016-09-05] MEDS: ACETAMINOPHEN 325 MG TAB PO PRN ×2 (02:41→14:03)
[2016-09-05 06:00] VITALS: BP 91/55; PULSE 64; RESP 17; TEMP 98.2; O2SAT 96
[2016-09-05] MEDS: ESTRADIOL 1 MG TAB PO SCH (09:00)
[2016-09-05] MEDS: OLANZapine 2.5 MG TAB PO SCH ×2 (09:02→20:15)
[2016-09-05] MEDS: LEVOTHYROXINE SODIUM 100 MCG TAB PO SCH (09:02)
--- NOTE | 2016-09-05 15:13 | HHI.PR ---
Subjective Remarks Follow up: Leukocytosis Patient reports feeling well offer no complaints at this time denies feeling lightheaded or dizzy Objective Vitals Vital Signs Date Time Temp Pulse Resp B/P Pulse Ox O2 Delivery O2 Flow Rate FiO2 09/05/16 06:00 98.2 64 17 91/55 96 09/04/16 18:00 98.0 86 16 100/56 98 I/O 09/04/16 09/04/16 09/04/16 09/05/16 09/05/16 09/05/16 07:00 15:00 23:00 07:00 15:00 23:00 Intake Total 240 ml 1400 ml 390 ml Output Total 100 ml Balance 240 ml 1400 ml 290 ml Intake Oral 240 ml 1400 ml 390 ml Output Stool Total 100 ml # Voids 4 Result Diagram: 09/04/16 0816 09/04/16 0816 Objective Remarks GENERAL: This is a well-nourished, well-developed patient, in no apparent distress. CARDIOVASCULAR: Regular rate and rhythm without murmurs, gallops, or rubs. RESPIRATORY: Clear to auscultation. Breath sounds equal bilaterally. No wheezes , rales, or rhonchi. GASTROINTESTINAL: Abdomen soft, non-tender, nondistended. Normal active bowel sounds MUSCULOSKELETAL: Extremities without clubbing, cyanosis, or edema. NEURO: Alert & Oriented x4 to person, place, time, situation. Moves all ext x4 A/P Assessment and Plan This is a 61-year-old female patient with past medical history which includes Crohn's disease with ostomy placement, hypothyroidism, mitral valve prolapse status post mitral valve replacement, hypertension, irritable bowel syndrome. Patient was brought into the emergency department under [place] act is currently admitted to inpatient psychiatric center we have been consulted for assistance with evaluation of leukocytosis white blood cell count noted to be at 19.9 with neutrophil 86.3%, UA negative leukocyte esterase, chest x-ray reviewed no acute process identified. Creatinine 1.26 GFR 43 last renal indices in 2013 revealed creatinine of 0.63 and GFR of 97 Leukocytosis- resolved after fluid bolus Encourage by mouth fluid intake Acute kidney injury likely related to dehydration-improved after fluid bolus Hypothyroidism continue Synthroid dose 100 mcg daily Hypertension- Atenolol DC 's as patient is having asymptomatic hypotension DVT prophylaxis patient is ambulatory Discussed with ER provider, RN and patient Patient appears medically stable will sign off Written by Yamilka Early, acting as scribe for Dr. Key on 09/05/16 at 15:13. The documentation accurately reflects the work performed [id number] by me on at 15:13. Yamilka Early Sep 05, 2016 15:13 Ramakrishna Key MD Sep 06, 2016 17:11 Hypothyroidism continue Synthroid dose 100 mcg daily Hypertension Atenolol DC 's as patient is having asymptomatic hypotension DVT prophylaxis patient is ambulatory Discussed with ER provider, RN and patient Patient appears medically stable will sign off Written by Yamilka Early, acting as scribe for Dr. Key on 09/05/16 at 15:13. Yamilka Early Sep 05, 2016 15:13
--- NOTE | 2016-09-05 15:33 | HHI.PYPN ---
Subjective Remarks Patient seen and examined with nurse Jeffrey. Chart reviewed. Case discussed with nursing staff. On my examination today, the patient reports that she is feeling somewhat better today. She denies any SI, HI or AVH. She does not describe any ongoing delusional material, such as she had voiced yesterday. She talks all of her psychiatric issues up to the tremendous stress she has been under because of her son's health and her pending divorce. She denies side effects from medications. Review of Systems Other No reported somatic complaints. In particular, no complaints of lightheadedness , dizziness. Objective Alert: Yes [place]: Person, Place, Date Mood: Calm Affect: Blunted Memory Intact: Comment (seems intact on clinical exam) Hallucinations: Other (no AVH) Delusions: No Delusion Type: Other (no delusions) Suicidal: Ideation (denies SI) Homicidal: Ideation (denies HI) Insight/Judgement Fair Remarks Thought processes fairly linear. Labs Labs reviewed. No new labs. Vitals/IOs Vital Signs Date Time Temp Pulse Resp B/P Pulse Ox O2 Delivery O2 Flow Rate FiO2 09/05/16 06:00 98.2 64 17 91/55 96 09/03/16 13:03 Room Air Intake and Output 09/04/16 09/04/16 09/04/16 07:59 15:59 23:59 Intake Total 0 ml 1400 ml 390 ml Output Total 100 ml Balance 0 ml 1400 ml 290 ml Assessment & Plan Problem List: (1) Brief psychotic disorder ICD Code: F23 Assessment & Plan Patient seems to be improving but I would like to monitor her one more night to make sure that these gains are persistent. We'll continue Zyprexa as ordered. Appreciate ongoing hospitalist quality assurance consultant input. Continue other medications and care as ordered. Justification for Cont. Inpt. Discharge planning. I have put out a call to the counselor. Discharge Planning Monitor overnight. Anticipate discharge tomorrow barring some clinical worsening. Request HC Surrog/Guard Advoc?: No Moy Poe MD Sep 05, 2016 15:33
[2016-09-05 17:53] LABS: HEMOGLOBIN A1a 3.6 %; HEMOGLOBIN A1b 1.6 %; HEMOGLOBIN Ao 84.3 %; HEMOGLOBIN LA1C 1.7 %; HEMOGLOBIN P3 3.3 %
[2016-09-05 21:33] VITALS: BP 139/62; PULSE 80; RESP 17; TEMP 98.6; O2SAT 100
[2016-09-06] MEDS: ACETAMINOPHEN 325 MG TAB PO PRN ×2 (02:18→06:04)
[2016-09-06] MEDS ORDERED: LEVOTHYROXINE SODIUM 100 MCG TAB PO SCH (06:00)
[2016-09-06 06:15] VITALS: BP 96/64; PULSE 68; RESP 18; TEMP 98.1; O2SAT 97
[2016-09-06] MEDS: OLANZapine 2.5 MG TAB PO SCH (08:53)
[2016-09-06] MEDS: ESTRADIOL 1 MG TAB PO SCH (09:00)
[2016-09-06] MEDS ORDERED: OLAN2.5T PO (11:05)
--- NOTE | 2016-09-06 11:11 | HHI.DS ---
Psychiatry Discharge Summary Inpatient Psychiatric care?: Yes Advance Directive: No Reason Not Provided: Due to Patient Condition Mental Health AdvanceDirective: No Health Care Proxy: No Admission Admission Date Sep 03, 2016 at 09:23 Admission Diagnosis: (1) Bipolar disorder, current episode manic w/o psychotic features, severe ICD Code: F31.13 Brief History The patient is a 61-year-old woman, domicile with her sister, , but , unemployed, with uncertain uncertain psychiatric history, she denies, she denies previous hospitalizations, but she is on Escitalopram, Wellbutrin and Valium, but she refused to disclose the reason, medical history of migraines, chron disease, hypothyroidism, mitral valve replacement, colostomy status post obstruction, who presents to the emergency department under [place] act her psychiatric evaluation. On initial evaluation in the ER "Patient has been demonstrating bizarre behavior. Patient is pacing the room and when asked what she is here for, she tells me that if I "am not likely need to get out." Patient is holding her colostomy that is all and states she is trying to "save as much fluid as she can for her body." An accurate history is unobtainable at this time". On psychiatric evaluation she was guarded, poorly cooperative, disorganized and tangential. However, she was redirectable. Patient is states that the reason she was brought to the hospital is because she has an electrical current inside her body "telling me what to do, telling me sometimes to hurt people and other times to hurt myself", she also states that "I do not psych reword this electrical current is coming from, but sometimes I can see it running into the televisions, radio and other electronic devices", she says that she has been having this electrical current inside her body for about 4 weeks now. Patient described her mood as very happy, she port increased energy, decreased need to sleep, increased necessity to talk, and a sensation of "seeing every very around as a threat". She denies depressive symptoms, such as anhedonia, hopelessness, helplessness, suicidal and homicidal ideation. She denies visual and auditory hallucinations. On evaluation patient has decreased concentration capacity, she is talkative, but not pressured speech, frequent loosening of association, but she is fully oriented 3, without any gross cognitive impairment observed. Patient denies the use of drugs and alcohol. Tobacco Use In Past 30 Days: 5 or More Cigarettes/Day Alcohol Use: 2-3 Times Per Week Hospital Course Patient was admitted to a locked, inpatient psychiatric unit. Appropriate precautions were in place throughout patient's hospital stay. A general medical consultation was obtained and the patient was medically cleared prior to discharge. Patient was seen and examined daily on the unit by psychiatry and also visited by counselor. Medications were adjusted. Patient tolerated medications well without side effects. Patient had some improvement in her presenting psychiatric symptomatology. There was no evidence of any suicidality or homicidality on the inpatient unit. On the day of discharge: Case discussed with nursing staff who reports that the patient has been insistent on discharge and has threatened to call 911 if she isn't discharged today. On my examination, the patient is a little vigilant but denies any AVH or delusional material. She denies any suicidal or homicidal ideation on direct questioning. She feels that she has maximized benefit from this inpatient psychiatric hospital stay and would be more comfortable and do better at home. She denies side effects from medications and says that she will continue to take the Zyprexa. She says that she will follow up with outpatient mental health referral that we provided to her. I patrol judge that the patient does not meet criteria for involuntary psychiatric hospitalization under the [place] act after weighing the acute, chronic, and protective factors. However, her presentation this morning is not nearly so reassuring as she had presented yesterday when I evaluated her. I recommended that she remain in the hospital for further observation, but she has declined. I have no basis to retain this patient involuntarily in the hospital at this time, and so I will arrange for her discharged today AGAINST MEDICAL ADVICE. Patient is to follow-up psychiatrically is referred by counselor. She is also to follow-up with primary care. I counseled the patient regarding warning signs for need to return to the psychiatric emergency room as part of the general safety plan. Results Blood Pressure 96 / 64 Vital Signs Date Time Temp Pulse Resp B/P Pulse Ox O2 Delivery O2 Flow Rate FiO2 09/06/16 06:15 98.1 68 18 96/64 97 09/03/16 13:03 Room Air Laboratory Tests Test 09/04/16 08:16 Neutrophils (%) (Auto) 70.4 % (16.0-70.0) Eosinophils (%) (Auto) 4.3 % (0.0-4.0) Estimat Glomerular Filtration 72 ML/MIN (>89) Rate Triglycerides Level 221 MG/DL (42-150) Cholesterol Level 237 MG/DL (120-200) LDL Cholesterol 107 MG/DL (0-99) HDL Cholesterol 86.3 MG/DL (40.0-60.0) Laboratory Results Test 09/04/16 08:16 Hemoglobin A1c 5.3 % (4.3-6.0) Triglycerides Level 221 MG/DL (42-150) Cholesterol Level 237 MG/DL (120-200) LDL Cholesterol 107 MG/DL (0-99) HDL Cholesterol 86.3 MG/DL (40.0-60.0) Summary of Procedures None done. Imaging Last Impressions Head CT 09/04/16 0000 Signed Impressions: Service Date/Time: Sunday, September 04, 2016 17:26 - CONCLUSION: Negative noncontrast head CT. Slade Ford MD Chest X-Ray 09/03/16 0502 Signed Impressions: Service Date/Time: Saturday, September 03, 2016 05:16 - CONCLUSION: No acute disease. Hima Estrada MD Pending results at discharge: No Medications # of Antipsychotic meds at D/C: 1 Approp Antipsych med options 1 - Minimum of three failed multiple trials of monotherapy. 2 - Documented plan to taper to monotherapy due to previous use of multiple meds OR cross-taper in progress at D/C. 3 - Documentation of augmentation of Clozapine. 4 - Justification other than those listed in allowable values 1-3, document here : Discharge Discharge Date: Sep 06, 2016 Discharge Diagnosis: (1) Brief psychotic disorder Diagnosis: Principal ICD Code: F23 GAF on discharge is 55 Mental Status Exam at Disch Patient is casually dressed. She is well groomed. She is awake and alert and oriented 3. No abnormal motor movements noted. No hand tremor, no dystonia, no dyskinesia noted. Speech is within normal limits for rate, tone and volume. Language and fund of knowledge seem adequate and appropriate for age. Mood is described as stable but affect is a little bit restricted and dysphoric. Thought process linear. No loosening of associations. Patient is somewhat vigilant but not frankly paranoid, nor is there any other evident delusional material. She denies AVH. She denies suicidal or homicidal ideation. Insight and judgment are fair at best. Pt Condition on Discharge: Guarded (AMA discharge) Discharge Disposition: Discharge Home Discharge Instructions Diet Instructions: As Tolerated, No Restrictions Activities you can perform: Weight Bearing as Araceli Scheduled Appointment: [facility] Appointment Date: Sep 14, 2016 Appointment Time: 2:15 pm New Medications: Olanzapine (Olanzapine) 2.5 Mg Tab 2.5 MG PO Q12HR Mental Health Days 15 Ref 1 TAB Continued Medications: Albuterol 8.5 GM Inh (Proair Hfa 8.5 GM Inh) 90 Mcg/Act Aer 2 PUFF INH Q4-6H 108 mcg/actuation PRN SHORTNESS OF BREATH #1 Ref 0 INHALER Estradiol (Estradiol) 1 Mg Tab 1 MG PO DAILY Estrogen Supplements #30 Ref 0 TAB Levothyroxine (Levothyroxine) 100 Mcg Tab 100 MCG PO DAILY Thyroid #30 Ref 0 TAB Mometasone Nasal [place] (Nasonex Nasal [place]) 50 Mcg/Act Naspr 2 SPRAY EACH NARE DAILY Allergy Management #1 Ref 0 BOTTLE Discontinued Medications: Atenolol (Atenolol) 50 Mg Tab 50 MG PO DAILY Blood Pressure Management #30 Ref 0 TAB Bupropion HCl (Bupropion HCl) 100 Mg Tab 300 MG PO HS Control Depression Ref 0 TAB Diazepam (Diazepam) 5 Mg Tab 5 MG PO BID anxiety Ref 0 TAB Escitalopram (Lexapro) 20 Mg Tab 20 MG PO DAILY #30 Ref 0 TAB Zolpidem ER (Zolpidem ER) 12.5 Mg Tab 12.5 MG PO HS PRN INSOMNIA Ref 0 TAB Discharge Time <= 30 minutes Discharge/Advance Care Plan Health Problems: (1) Brief psychotic disorder Goals to promote your health * To prevent worsening of your condition and complications * To maintain your health at the optimal level Directions to meet your goals Take your medications as prescribed Follow your dietary instruction Follow activity as directed Keep your appointments as scheduled Take your immunizations and boosters as scheduled If your symptoms worsen call your PCP, if no PCP go to Urgent Care Center or Emergency Room For 24/ questions related to your inpatient stay or results of tests pending at discharge, please contact Dr. Moy Poe at Smoking is Dangerous to Your Health. Avoid second hand smoking Moy Poe MD Sep 06, 2016 11:11
== END 2016-09-06 11:23 | disposition left against medical advice (07) | DRG 885 ==
LOC: NEPA 21:47 → NEDA 09-03 09:23 → UNDOADMIN 09-03 10:40 → NEDA 09-03 10:40 → H250 09-03 13:55 → H260 09-04 18:05
PROVIDERS: ADMIT Psychiatry & Neurology Psychiatry; ATTEND Psychiatry & Neurology Psychiatry
DX: F23 Brief psychotic disorder (principal); N17.9 Acute kidney failure, unspecified; I10 Essential (primary) hypertension; E03.9 Hypothyroidism, unspecified; G43.909 Migraine, unspecified, not intractable, without status migrainosus; Z95.2 Presence of prosthetic heart valve; Z93.3 Colostomy status; K21.9 Gastro-esophageal reflux disease without esophagitis; K58.9 Irritable bowel syndrome, unspecified; F17.210 Nicotine dependence, cigarettes, uncomplicated; E86.0 Dehydration
CPT/HCPCS: 70450; 71010; 80048; 80061; 80301; 80320; 81001; 83036; 84443; 85025; 96372; G0479; J2060; J7030

== ENCOUNTER 2018-01-02 17:25 | Inpatient (IN) | payer OTHER, MEDICARE ==
[~2018-01-02 17:25] MED LIST changes: -ALBU8I INH; +ALBUAER3 INH; -ATEN-102 PO; -DIAZ5 PO; +LEVO100T5 PO; -LEVO100T75 PO; -LEXA20TA PO; -MOME17I; +MOME17I EACH NARE; +OLAN2.5T7 PO; -ULTR50TA PO
[2018-01-02 21:45] VITALS: BP 118/71; PULSE 64; RESP 17; TEMP 98.3; O2SAT 96
[2018-01-02] MEDS ORDERED: BUTA1CAP PO (23:15)
[2018-01-02] MEDS ORDERED: ESCI20TA PO (23:16)
[2018-01-02] MEDS ORDERED: FAMO20TA2 PO (23:24)
[2018-01-02] MEDS ORDERED: DIAZ2TAB PO (23:24)
[2018-01-02] MEDS ORDERED: ALPR0.25 PO (23:24)
[2018-01-02] MEDS ORDERED: NITR100C4 PO (23:24)
[2018-01-03] MEDS ORDERED: ACETAMINOPHEN 325 MG TAB PO PRN (00:15)
[2018-01-03] MEDS ORDERED: MAGNESIUM HYDROXIDE SUSP 30 ML CUP PO PRN (00:15)
[2018-01-03 06:13] VITALS: BP 128/74; PULSE 85; RESP 18; TEMP 97.9; O2SAT 97
[2018-01-03] MEDS: NICOTINE 21 MG/24 HR PATCH T-DERMAL SCH (09:00)
--- NOTE | 2018-01-03 09:50 | HHI.HP ---
Provisional Diagnosis Admission Date January 02, 2018 at 21:30 [place] I. 1. Bipolar disorder, presently depressed, severe without psychotic symptoms [place] II. Deferred Certification of Person's Competence To Provide Express and Informed Consent I have personally examined Emeli Perera , a person being served at [facility] on, January 03, 2018 09:50. Express and informed consent means consent voluntarily given in writing, by a competent person, after sufficient explanation and disclosure of the subject matter involved to enable the person to make a knowing and willful decision without any element of force, fraud, deceit, duress, or other form of constraint or coercion. This person is 18 years of age or older, is not now known to be incompetent to consent to treatment with a guardian advocate, and does not have a health care surrogate or proxy currently making medical treatment decisions. I have found this person to be one of the following: [x] Competent to provide express and informed consent, as defined above, for voluntary admission to this facility and is competent to provide express and informed consent for treatment. He/she has the consistent capacity to make well reasoned, willful, and knowing decisions concerning his or her medical or mental health treatment. The person fully and consistently understands the purpose of the admission for examination/placement and is fully capable of personally exercising all rights assured [place] Incompetent to provide express and informed consent to voluntary admission, and this is incompetent to provide express and informed consent to treatment. The person must be transferred to involuntary status and a petition for a guardian advocate filed with the Circuit Court. [] Refusing to provide express and informed consent to voluntary admission but is competent to provide express and informed consent for treatment. The person must be discharged or transferred to involuntary status. Form shall be completed within 24 hours of a person's arrival at the receiving facility and filed in the clinical record of each person: 1. Admitted on a voluntary basis 2. Permitted to provide express and informed consent to his/her own treatment 3. Allowed to transfer from involuntary to voluntary status 4. Prior to permitting a person to consent to his or her own treatment after having been previously found incompetent to consent to treatment. History of Present Illness Capacity: Has Capacity Psych Chief Complaint: Suicide attempt by overdose HPI Ms. Perera is a 62-year-old female sent in transfer from [facility] under [place] Act following suspected opioid overdose. Documentation from outside hospital reviewed. Reviewing the electronic medical record, I note the patient was admitted under my care in August 2016/September 2016; she left AGAINST MEDICAL ADVICE at that time. Patient seen and examined with nurse. Chart reviewed. Case discussed with nursing staff. On my examination today, the patient presents as fairly dysphoric and withdrawn. She reports that her mood destabilized as outpatient provider was tapering her off of Risperdal secondary to intolerable nausea associated with this medication. She reports several psychosocial stressors including health problems of her own and her son, who is reportedly dying from liver issues. She notes "my whole life is screwed up. It's hard to live. I wanna ." She contracts for safety on the inpatient unit. Regarding her presenting overdose, she says she took oxycodone and "I just kept taking them." She had been thinking about suicide for the last few days off and on and "my mind just kept saying to do it." In addition to low mood, the patient reports impaired concentration, decreased self-care and social withdrawal. She is also fairly psychomotor slowed. I can elicit no hypomanic or manic symptoms. She denies any audiovisual hallucinations. I can elicit no delusional beliefs. She does complain of some anxiety. Remainder of the psychiatric ROS is negative. No acute physical complaints. Past psychiatric history: Patient reports a history of bipolar disorder and schizophrenia. She is treated on an outpatient basis by Dr. Whalen. Most recent psychiatric admission was here at [facility]. She denies a history of previous suicide attempts. Family history: The patient reports a family history of bipolar disorder and notes that 3 members of her family have by suicide. Chemical dependency history: The patient denies any abuse of drugs or alcohol. Social history: The patient reports that she lives with her sister. She is and has a son. She has high school educated. She is on SSI. She denies any legal history. Denies any history. Denies any access to guns or firearms. 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 She denies any history of abuse. Review of Systems Except as stated in HPI: all other systems reviewed are Neg Past Family Social History Coded Allergies: naproxen (Unverified Allergy, Severe, Nausea/Vomiting, 04/18/17) erythromycin base (Unverified Allergy, Mild, 04/18/17) SICK - Per pt. ketoprofen (Unverified Allergy, Mild, 04/18/17) SICK - Per pt. propoxyphene (Unverified Allergy, Unknown, 04/18/17) Per pt. Past Medical History See electronic medical record Reported Medications Diazepam (Diazepam) 2 Mg Tab, 0 PO Q4HR, TAB 0 Refills 01/02/18 Alprazolam (Alprazolam) 0.25 Mg Tab, 0 PO Q8H Y for ANXIETY, TAB 0 Refills 01/02/18 Nitrofurantoin Monohydrate Macrocrystals (Nitrofurantoin Monohydrate Macrocrystals) 100 Mg Cap, 100 MG PO BID for Infection, CAP 0 Refills 01/02/18 Famotidine (Famotidine) 20 Mg Tab, 20 MG PO BID, #60 TAB 0 Refills 01/02/18 Escitalopram (Escitalopram) 20 Mg Tab, 20 MG PO DAILY, #30 TAB 0 Refills 01/02/18 Zbhryzvftm-Gaztpdtvmwmvx-Qsyjhdeo (Fioricet) 50-300-40 Mg Cap, 1 CAP PO Q4H Y for HEADACHE, CAP 0 Refills 01/02/18 Estradiol (Estradiol) 1 Mg Tab, 1 MG PO DAILY for Estrogen Supplements, #30 TAB 0 Refills 09/02/16 Discontinued Reported Medications Levothyroxine (Levothyroxine) 100 Mcg Tab, 100 MCG PO DAILY for Thyroid, #30 TAB 0 Refills 09/02/16 Mometasone Nasal [place] (Nasonex Nasal [place]) 50 Mcg/Act Naspr, 2 SPRAY EACH NARE DAILY for Allergy Management, #1 BOTTLE 0 Refills 09/02/16 Albuterol 8.5 GM Inh (Proair Hfa 8.5 GM Inh) 90 Mcg/Act Aer, 2 PUFF INH Q4-6H Y for SHORTNESS OF BREATH, #1 INHALER 0 Refills 108 mcg/actuation 09/02/16 Discontinued Scripts Olanzapine (Olanzapine) 2.5 Mg Tab, 2.5 MG PO Q12HR for Mental Health for 15 Days, TAB 1 Refill Prov:Moy Poe MD 09/06/16 Current Medications Medications (Trade) Dose Ordered Sig/Evie Route Start Time Stop Time Status Last Admin (Atarax) 50 mg Q6H PRN PO 01/03/18 00:15 (Tylenol) 650 mg Q4H PRN PO 01/03/18 00:15 (Milk Of Magnesia Liq) 30 ml DAILY PRN PO 01/03/18 00:15 (Mag-Al Plus Susp Liq) 30 ml Q6H PRN PO 01/03/18 00:15 (Habitrol 21 Mg Patch.24 Hr) 1 patch DAILY T-DERMAL 01/03/18 09:00 Miscellaneous Information 1 HS T-DERMAL 01/03/18 21:00 Patient's Strengths (min. 2) In a monitored setting. Verbally fluent. Physical Exam Physical exam completed by provider at outside hospital. On my examination today, the patient appears to be in no acute physical distress. She is psychomotor slowed as noted above. No other motor abnormalities noted. Labs and vitals reviewed: Vital Signs Vital Signs Date Time Temp Pulse Resp B/P (MAP) Pulse Ox O2 Delivery O2 Flow Rate FiO2 01/03/18 06:13 97.9 85 18 128/74 (92) 97 Lab Results Labs from outside hospital reviewed: UA reveals 2+ LE CBC W17.8 CMP Glu 127, cre 1.41, AST/ALT 78/60 Ammonia 60 EtOH <10 UTox +BZD HCT mild generalized atrophy, no acute process. Mental Status Examination Appearance: Disheveled Consciousness: Alert Orientation: Person, Place (At least) Motor Activity: Other (Psychomotor slowed) Speech: Slow Language: Adequate Fund of Knowledge: Adequate Attention and Concentration: Easily Distracted Memory: Unremarkable (Grossly intact on clinical exam) Mood: Other (Depressed) Affect: Other (Restricted) Thought Process & Associations: Other (Slowed but linear) Thought Content: Appropriate Hallucination Type: None Delusion Type: None Suicidal Ideation: Yes Suicidal Plan: No Suicidal Intention: No (Contracts for safety on the inpatient unit) Homicidal Ideation: No Homicidal Plan: No Homicidal Intention: No Insight: Fair Judgment: Impulsive Assessment & Plan Problem List: (1) Bipolar disorder ICD Codes: F31.9 - Bipolar disorder, unspecified Status: Acute Assessment & Plan 62-year-old female with psychiatric history as detailed above who presents in transfer from outside hospital under a [place] act following opioid overdose. Patient reports ongoing depressive symptoms and suicidal ideation in the setting of probable bipolar illness. She was being tapered off of her Risperdal and reports that she also takes Lexapro and Valium and that Xanax was recently added. I have discussed patient's pharmacotherapeutic options for management of her suspected bipolar depression, and we also did discuss the possibility of ECT. Patient requires psychiatric hospitalization at this time for safety, observation and stabilization. Admit inpatient. Voluntary status. Discontinue Risperdal. Initiate Latuda 20mg with dinner given decreased GFR with plans to titrate to effect for mood stabilization. Continue Lexapro 20mg daily. Confirm benzo dosing with pharmacy and in meantime place patient on CIWA with Ativan. Seizure precautions. R/B/A for meds discussed with patient. Continue general medical meds and consult hospitalist for further medical management. Check CBC, CMP and TSH as well as EKG for QTc. OT eval. Vitals every shift. Counselor to see. Disposition planning. Estimated length of stay: 7-9 days. Discharge Planning Pending psychiatric stabilization Request HC Surrog/Guard Advoc?: No Problem Qualifiers (1) Bipolar disorder: Qualified Codes: F31.4 - Bipolar disorder, current episode depressed, severe, without psychotic features Moy Poe MD January 03, 2018 09:50
[2018-01-03] MEDS ORDERED: FLUMAZENIL 0.5 MG/5 ML VIAL IV PUSH PRN (10:00)
[2018-01-03] MEDS ORDERED: LORazepam 2 MG TAB PO PRN (10:00)
[2018-01-03] MEDS ORDERED: LORazepam 2 MG/ML VIAL IV PUSH PRN ×4 (10:00)
[2018-01-03] MEDS: NITROFURANTOIN MONOHYD MACROCR 100 MG CAP PO SCH ×2 (10:00→21:17)
[2018-01-03] MEDS ORDERED: ACETAMIN 325 MG/BUTALBITAL 50 MG/CAFFEINE 40 MG TAB PO PRN (10:00)
[2018-01-03] MEDS: ESTRADIOL 1 MG TAB PO SCH (10:00)
[2018-01-03] MEDS ORDERED: PILL SPLITTER OTHER PRN (10:30)
[2018-01-03] MEDS: ESCITALOPRAM OXALATE 20 MG TAB PO SCH (11:19)
[2018-01-03] MEDS: FAMOTIDINE 20 MG TAB PO SCH ×2 (11:20→21:17)
[2018-01-03 13:00] LABS: AUTOMATED NEUTROPHIL # 4.2 TH/MM3 (1.8-7.7); BASOPHIL # 0.1 TH/MM3 (0-0.2); BASOPHIL % 1.1 % (0.0-2.0); EOSINOPHIL # 0.1 TH/MM3 (0-0.4); EOSINOPHIL % 1.8 % (0.0-4.0); HEMATOCRIT 36.9 % (35.0-46.0); HEMOGLOBIN 12.4 GM/DL (11.6-15.3); LYMPH % 17.8 % (9.0-44.0); MEAN CELL VOLUME 88.8 FL (80.0-100.0); MEAN CORPUSCULAR HEMOGLOBIN 29.9 PG (27.0-34.0); MEAN CORPUSCULAR HGB CONC 33.7 % (32.0-36.0); MEAN PLATELET VOLUME 7.9 FL (7.0-11.0); MONO % 5.6 % (0.0-8.0); MONOCYTE # 0.3 TH/MM3 (0-0.9); NEUT % 73.7 % (16.0-70.0); PLATELET COUNT 226 TH/MM3 (150-450); RED BLOOD COUNT 4.16 MIL/MM3 (4.00-5.30); RED CELL DISTRIBUTION WIDTH 13.5 % (11.6-17.2); WHITE BLOOD COUNT 5.7 TH/MM3 (4.0-11.0)
[2018-01-03 13:20] LABS: ALBUMIN 3.1 GM/DL (3.4-5.0); AST (GOT) 28 U/L (15-37); BICARBONATE 25.5 MEQ/L (21.0-32.0); BLOOD UREA NITROGEN 11 MG/DL (7-18); CALCIUM 9.1 MG/DL (8.5-10.1); CHLORIDE 110 MEQ/L (98-107); GLOMERULAR FILTRATION RATE 63 ML/MIN (>89); GLUCOSE,RANDOM 113 MG/DL (74-106); SODIUM (NA) 141 MEQ/L (136-145)
[2018-01-03 13:22] LABS: ALT (GPT) 54 U/L (10-53)
[2018-01-03 13:31] LABS: ALKALINE PHOSPHATASE 96 U/L (45-117); TOTAL BILIRUBIN ADULT 0.2 MG/DL (0.2-1.0); TOTAL PROTEIN 6.1 GM/DL (6.4-8.2)
[2018-01-03 17:45] VITALS: BP 133/73; PULSE 80; RESP 18; TEMP 98.5; O2SAT 97
[2018-01-03] MEDS ORDERED: LURASIDONE 40 MG TAB PO SCH (18:00)
[2018-01-03] MEDS: REMOVE OLD NICOTINE PATCH T-DERMAL SCH (21:00)
[2018-01-04 05:12] VITALS: BP 112/68; PULSE 62; RESP 16; TEMP 98; O2SAT 99
[2018-01-04] MEDS: LEVOTHYROXINE SODIUM 100 MCG TAB PO SCH (06:04)
[2018-01-04] MEDS: NICOTINE 21 MG/24 HR PATCH T-DERMAL SCH (09:00)
[2018-01-04] MEDS: ESCITALOPRAM OXALATE 20 MG TAB PO SCH (09:27)
[2018-01-04] MEDS: ESTRADIOL 1 MG TAB PO SCH (09:27)
[2018-01-04] MEDS: FAMOTIDINE 20 MG TAB PO SCH ×2 (09:27→21:32)
[2018-01-04] MEDS: NITROFURANTOIN MONOHYD MACROCR 100 MG CAP PO SCH ×2 (09:27→21:32)
[2018-01-04] MEDS: LORazepam 1 MG TAB PO PRN (09:32)
--- NOTE | 2018-01-04 11:24 | HHI.PYPN ---
Subjective Chief Complaint: Suicide attempt by overdose Remarks Patient seen and examined with nurse. Chart reviewed. I note that nurse was able to reach patient's pharmacy but the patient has no recent benzodiazepine prescriptions from them. Case discussed with nursing staff. On my examination today, the patient remains fairly depressed and withdrawn. She did feel a sense of "relaxation" after she took a dose of the Latuda and is agreeable to titration of this agent. She reports her sleep was fair overnight. She denies any active suicidal ideation but does admit to some passive thoughts of . She denies any audiovisual hallucinations. She denies any side effects from medications. No acute physical complaints. Review of Systems Except as stated in HPI: all other systems reviewed are Neg Mental Status Examination Appearance: Disheveled Consciousness: Alert Orientation: Person, Place (At least) Motor Activity: Other (Remains fairly psychomotor slowed) Speech: Slow Language: Adequate Fund of Knowledge: Adequate Attention and Concentration: Easily Distracted Memory: Unremarkable (Grossly intact on clinical exam) Mood: Other (Depressed) Affect: Other (Restricted) Thought Process & Associations: Linear, Other (Remain somewhat slowed) Thought Content: Appropriate Hallucination Type: None Delusion Type: None Suicidal Ideation: No (Passive thoughts of present) Suicidal Plan: No Suicidal Intention: No (Contracts for safety on the inpatient unit) Homicidal Ideation: No Homicidal Plan: No Homicidal Intention: No Insight: Fair Judgment: Impulsive Results Labs Test 01/03/18 12:47 White Blood Count 5.7 TH/MM3 Red Blood Count 4.16 MIL/MM3 Hemoglobin 12.4 GM/DL Hematocrit 36.9 % Mean Corpuscular Volume 88.8 FL Mean Corpuscular Hemoglobin 29.9 PG Mean Corpuscular Hemoglobin Concent 33.7 % Red Cell Distribution Width 13.5 % Platelet Count 226 TH/MM3 Mean Platelet Volume 7.9 FL Neutrophils (%) (Auto) 73.7 % Lymphocytes (%) (Auto) 17.8 % Monocytes (%) (Auto) 5.6 % Eosinophils (%) (Auto) 1.8 % Basophils (%) (Auto) 1.1 % Neutrophils # (Auto) 4.2 TH/MM3 Lymphocytes # (Auto) 1.0 TH/MM3 Monocytes # (Auto) 0.3 TH/MM3 Eosinophils # (Auto) 0.1 TH/MM3 Basophils # (Auto) 0.1 TH/MM3 CBC Comment DIFF FINAL Differential Comment Blood Urea Nitrogen 11 MG/DL Creatinine 0.90 MG/DL Random Glucose 113 MG/DL Total Protein 6.1 GM/DL Albumin 3.1 GM/DL Calcium Level 9.1 MG/DL Alkaline Phosphatase 96 U/L Aspartate Amino Transf (AST/SGOT) 28 U/L Alanine Aminotransferase (ALT/SGPT) 54 U/L Total Bilirubin 0.2 MG/DL Sodium Level 141 MEQ/L Potassium Level 3.7 MEQ/L Chloride Level 110 MEQ/L Carbon Dioxide Level 25.5 MEQ/L Anion Gap 6 MEQ/L Estimat Glomerular Filtration Rate 63 ML/MIN Free Thyroxine 1.41 NG/DL Thyroid Stimulating Hormone 3rd Gen 0.097 uIU/ML Labs reviewed. Free T4 within normal limits. Vitals/IOs Vital Signs Date Time Temp Pulse Resp B/P (MAP) Pulse Ox O2 Delivery O2 Flow Rate FiO2 01/04/18 05:12 98.0 62 16 112/68 (83) 99 Assessment & Plan Problem List: (1) Bipolar disorder ICD Codes: F31.9 - Bipolar disorder, unspecified Status: Acute Assessment & Plan Titrate Latuda to 40 mg with dinner to target mood symptoms. Continue Lexapro as ordered. Awaiting hospitalist consultation. Consult the ostomy nurse for management of patient's ostomy. Continue to monitor on the inpatient unit. Encouraged participation in groups and unit activities. Continue other medications and care as ordered. Justification for Cont. Inpt. Medication changes. Monitoring for impairment in safety. High risk for decompensation in less restrictive environment. Discharge Planning Pending psychiatric stabilization Request HC Surrog/Guard Advoc?: No Problem Qualifiers (1) Bipolar disorder: Qualified Codes: F31.4 - Bipolar disorder, current episode depressed, severe, without psychotic features Moy Poe MD January 04, 2018 11:24
--- NOTE | 2018-01-04 12:20 | PD.CONS ---
HPI Service [facility] Hospitalists Consult Requested By Reason for Consult Medical management Primary Care Physician Unknown Diagnoses: History of Present Illness 62-year-old female with past medical history significant for Crohn's s/p ostomy , IBS, MVP, hypothyroidism, GERD and recently diagnosed schizophrenia who was admitted to [facility] on 12/31 after patient was found unconscious by sister who she lives with. She was admitted and placed in observation as well as under [place] act due to intentional overdose. During her stay at [facility] she was also treated for NILTON, transaminitis and UTI. She was cleared medically and transferred to [place] inpatient psychiatry for further evaluation. [facility] has been consulted to assist with medical management. Patient is seen and examined in her room resting in bed comfortably in no acute distress. She denies any fevers, chills, nausea, vomiting, abdominal pain, shortness of breath, cough, chest pain, dizziness, lightheadedness, or dysuria. Patient reports that she has had 2 surgeries for ostomy in the past and has been in the process of trying to get the prolapsed stoma repaired. She is requesting I take a look at a blister on her neck that she believes was related to the incident where she was found unconscious. She is also requesting ostomy equipment to have her bag changed. She does not voice any other acute concerns or complaint. Spoke with nurse who does not voice any concerns. Review of Systems Except as stated in HPI: all other systems reviewed are Neg Past Family Social History Allergies: Coded Allergies: naproxen (Unverified Allergy, Severe, Nausea/Vomiting, 04/18/17) erythromycin base (Unverified Allergy, Mild, 04/18/17) SICK - Per pt. ketoprofen (Unverified Allergy, Mild, 04/18/17) SICK - Per pt. propoxyphene (Unverified Allergy, Unknown, 04/18/17) Per pt. Past Medical History Crohn's C. difficile colitis Mitral valve prolapse Hypothyroidism GERD Primary sclerosing cholangitis Chronic retrovaginal fistula Schizophrenia Past Surgical History Hysterectomy appendectomy tonsillectomy loop colostomy Reported Medications Current Medications Medications (Trade) Dose Ordered Sig/Evie Route Start Time Stop Time Status Last Admin (Atarax) 50 mg Q6H PRN PO 01/03/18 00:15 (Tylenol) 650 mg Q4H PRN PO 01/03/18 00:15 (Milk Of Magnesia Liq) 30 ml DAILY PRN PO 01/03/18 00:15 (Mag-Al Plus Susp Liq) 30 ml Q6H PRN PO 01/03/18 00:15 01/04/18 14:26 (Habitrol 21 Mg Patch.24 Hr) 1 patch DAILY T-DERMAL 01/03/18 09:00 01/03/18 09:00 Miscellaneous Information 1 HS T-DERMAL 01/03/18 21:00 01/03/18 21:00 (Lexapro) 20 mg DAILY PO 01/03/18 10:00 01/04/18 09:27 (Estradiol) 1 mg DAILY PO 01/03/18 10:00 01/04/18 09:27 (Pepcid) 20 mg BID PO 01/03/18 10:00 01/04/18 09:27 (Macrobid) 100 mg BID PO 01/03/18 10:00 01/06/18 09:59 01/04/18 09:27 (Fioricet 325-50-40) 1 tab Q4H PRN PO 01/03/18 10:00 (Synthroid) 100 mcg DAILY@0600 PO 01/04/18 06:00 01/04/18 06:04 (Romazicon Inj) 0.2 mg Q1M PRN IV PUSH 01/03/18 10:00 (Ativan) 1 mg Q4H PRN PO 01/03/18 10:00 01/04/18 09:32 (Ativan Inj) 1 mg Q4H PRN IV PUSH 01/03/18 10:00 (Ativan) 2 mg Q2H PRN PO 01/03/18 10:00 (Ativan Inj) 2 mg Q2H PRN IV PUSH 01/03/18 10:00 (Ativan Inj) 2 mg Q1H PRN IV PUSH 01/03/18 10:00 (Ativan Inj) 2 mg Q15M PRN IV PUSH 01/03/18 10:00 (Pill Splitter) 1 ea UNSCH PRN OTHER 01/03/18 10:30 (Latuda) 40 mg WITH DINNER PO 01/04/18 18:00 Active Ordered Medications Current Medications Medications (Trade) Dose Ordered Sig/Evie Route Start Time Stop Time Status Last Admin (Atarax) 50 mg Q6H PRN PO 01/03/18 00:15 (Tylenol) 650 mg Q4H PRN PO 01/03/18 00:15 (Milk Of Magnesia Liq) 30 ml DAILY PRN PO 01/03/18 00:15 (Mag-Al Plus Susp Liq) 30 ml Q6H PRN PO 01/03/18 00:15 01/04/18 14:26 (Habitrol 21 Mg Patch.24 Hr) 1 patch DAILY T-DERMAL 01/03/18 09:00 01/03/18 09:00 Miscellaneous Information 1 HS T-DERMAL 01/03/18 21:00 01/03/18 21:00 (Lexapro) 20 mg DAILY PO 01/03/18 10:00 01/04/18 09:27 (Estradiol) 1 mg DAILY PO 01/03/18 10:00 01/04/18 09:27 (Pepcid) 20 mg BID PO 01/03/18 10:00 01/04/18 09:27 (Macrobid) 100 mg BID PO 01/03/18 10:00 01/06/18 09:59 01/04/18 09:27 (Fioricet 325-50-40) 1 tab Q4H PRN PO 01/03/18 10:00 (Synthroid) 100 mcg DAILY@0600 PO 01/04/18 06:00 01/04/18 06:04 (Romazicon Inj) 0.2 mg Q1M PRN IV PUSH 01/03/18 10:00 (Ativan) 1 mg Q4H PRN PO 01/03/18 10:00 01/04/18 09:32 (Ativan Inj) 1 mg Q4H PRN IV PUSH 01/03/18 10:00 (Ativan) 2 mg Q2H PRN PO 01/03/18 10:00 (Ativan Inj) 2 mg Q2H PRN IV PUSH 01/03/18 10:00 (Ativan Inj) 2 mg Q1H PRN IV PUSH 01/03/18 10:00 (Ativan Inj) 2 mg Q15M PRN IV PUSH 01/03/18 10:00 (Pill Splitter) 1 ea UNSCH PRN OTHER 01/03/18 10:30 (Latuda) 40 mg WITH DINNER PO 01/04/18 18:00 Family History Mother: Cardiac history in renal disease Father: Cardiac history Social History Tobacco: Admits to smoking 5-10 cigarettes a day off and on Alcohol use: Denies Illicit drug use: Denies Physical Exam Vital Signs Vital Signs Date Time Temp Pulse Resp B/P (MAP) Pulse Ox O2 Delivery O2 Flow Rate FiO2 01/04/18 05:12 98.0 62 16 112/68 (83) 99 01/03/18 17:45 98.5 80 18 133/73 (93) 97 Physical Exam GENERAL: This is a well-nourished, well-developed patient, in no apparent distress. SKIN: No rashes. Cool and dry. Left shoulder delineated erythematous area with fluid-filled blister. HEAD: Atraumatic. Normocephalic. EYES: Pupils equal round and reactive. Extraocular motions intact. No scleral icterus. No injection or drainage. ENT: Nose without bleeding, purulent. Throat without erythema. Airway patent. NECK: Trachea midline. No JVD CARDIOVASCULAR: Regular rate and rhythm without murmurs, gallops, or rubs. RESPIRATORY: Clear to auscultation. Breath sounds equal bilaterally. No wheezes , rales, or rhonchi. GASTROINTESTINAL: Abdomen soft, non-tender, nondistended. No guarding. Right mid abdomen colostomy with prolapsed stoma/bowel. [place], moist with green liquid stool in bag. MUSCULOSKELETAL: Extremities without clubbing, cyanosis, or edema. No joint tenderness, effusion, or edema noted. NEUROLOGICAL: Awake and alert, oriented times. Cranial nerves II through XII grossly intact. Motor and sensory grossly within normal limits. Five out of 5 muscle strength in all muscle groups. Normal speech. Laboratory Laboratory Tests Test 01/03/18 12:47 White Blood Count 5.7 Red Blood Count 4.16 Hemoglobin 12.4 Hematocrit 36.9 Mean Corpuscular Volume 88.8 Mean Corpuscular Hemoglobin 29.9 Mean Corpuscular Hemoglobin Concent 33.7 Red Cell Distribution Width 13.5 Platelet Count 226 Mean Platelet Volume 7.9 Neutrophils (%) (Auto) 73.7 Lymphocytes (%) (Auto) 17.8 Monocytes (%) (Auto) 5.6 Eosinophils (%) (Auto) 1.8 Basophils (%) (Auto) 1.1 Neutrophils # (Auto) 4.2 Lymphocytes # (Auto) 1.0 Monocytes # (Auto) 0.3 Eosinophils # (Auto) 0.1 Basophils # (Auto) 0.1 CBC Comment DIFF FINAL Differential Comment Blood Urea Nitrogen 11 Creatinine 0.90 Random Glucose 113 Total Protein 6.1 Albumin 3.1 Calcium Level 9.1 Alkaline Phosphatase 96 Aspartate Amino Transf (AST/SGOT) 28 Alanine Aminotransferase (ALT/SGPT) 54 Total Bilirubin 0.2 Sodium Level 141 Potassium Level 3.7 Chloride Level 110 Carbon Dioxide Level 25.5 Anion Gap 6 Estimat Glomerular Filtration Rate 63 Free Thyroxine 1.41 Thyroid Stimulating Hormone 3rd Gen 0.097 Result Diagram: 01/03/18 1247 01/03/18 1247 Assessment and Plan Assessment and Plan 62-year-old female with past medical history significant for Crohn's s/p ostomy , IBS, MVP, hypothyroidism, GERD and recently diagnosed schizophrenia who was admitted to [facility] on 12/31 after patient was found unconscious by sister who she lives with. She was admitted and placed in observation as well as under [place] act due to intentional overdose. During her stay at [facility] she was also treated for NILTON, transaminitis and UTI. She was cleared medically and transferred to [place] inpatient psychiatry for further evaluation. [facility] has been consulted to assist with medical management. Intentional overdose/schizophrenia -Medically cleared at [facility], psychiatric treatment by primary team greatly appreciated. Crohn's s/p colostomy -CBC reviewed and stable, BMP also stable -Ostomy nurse consulted for assistance with ostomy dressings. -Will need to follow-up as outpatient with general surgery for stoma/bowel prolapse, voiced understanding. Hypothyroidism -Continue dose of levothyroxine -TSH 0.097, free T4 1.41 -Follow-up as outpatient E. coli UTI -Review of medical records, UA collected on 12/31+ for E. coli with meadows sensitivity -Patient asymptomatic, continue Macrobid with an date 01/06 DVT prophylaxis-ambulation Discussed with patient and nurse. Thank you for this consultation, will continue to follow along. Tra Nguyen January 04, 2018 12:19
--- NOTE | 2018-01-04 14:21 | EKG ---
Date Performed: 01/03/2018 Time Performed: 13:52:27 PTAGE: 62 years EKG: Sinus rhythm NORMAL ECG Since the PREVIOUS TRACING , no significant change noted PREVIOUS TRACIN05/03/2014 18.39 DOCTOR: Laura Chapman Interpretating Date/Time 01/04/2018 14:17:47
[2018-01-04] MEDS: ALUMINUM/MAGNESIUM/SIMETH 30 ML CUP PO PRN (14:26)
--- NOTE | 2018-01-04 15:37 | PD.WCN.NOT ---
Wound Consult Description: Consult for OSTOMY MANAGEMENT per Dr Poe Communicated with: Patient RN Recommendation: Empty pouch when 1/3-1/2 full of effluent (stool) Change ostomy appliance every 3-5 days and PRN for leaks (patient will complain of burning or stinging around stoma) Use a 2 1/4" ostomy appliance and cut opening to 1 1/2" or 38mm Additional Information: Patient seen in room 2604 for ostomy assessment and appliance change using a 2 1 /4" cut to fit 2 piece appliance with open ended pouch. Ostomy Type: Ileostomy Educated patient on: 2 piece appliance cut to fit her 1 1/2" stoma size. Additional information Patient seen in room 2604 for ostomy assessment and appliance change. Patient states that she has a colostomy. Stoma is located on the lower right side abdomen and appears to be a loop ileostomy. Patient states that she always has liquid that comes from her stoma, further indicating that the stoma is an ileostomy vs colostomy. Either way, the stoma is functioning with brown liquid effluent from lumen with long protrusion. Stoma measures 1 1/2" round, red, moist. Peristomal skin is noted with minimal irritation from 1-3 o'clock that was encrusted using stoma powder (then wiped away) and then skin prepped using Cavilon skin barrier film then allowed to air dry before placing cut to fit wafer and open ended pouch. Yusra Quinonez [facility] January 04, 2018 15:37
[2018-01-04 17:53] VITALS: BP 115/61; PULSE 66; RESP 17; TEMP 98.5; O2SAT 99
[2018-01-04] MEDS ORDERED: LURASIDONE 40 MG TAB PO SCH (18:00)
[2018-01-04] MEDS: REMOVE OLD NICOTINE PATCH T-DERMAL SCH (21:00)
[2018-01-05] MEDS: LORazepam 1 MG TAB PO PRN (02:56)
[2018-01-05 04:57] VITALS: BP 148/85; PULSE 68; RESP 16; TEMP 97.6; O2SAT 99
[2018-01-05] MEDS: LEVOTHYROXINE SODIUM 100 MCG TAB PO SCH (05:17)
[2018-01-05] MEDS: ALUMINUM/MAGNESIUM/SIMETH 30 ML CUP PO PRN (05:48)
[2018-01-05] MEDS: NITROFURANTOIN MONOHYD MACROCR 100 MG CAP PO SCH ×2 (08:26→22:02)
[2018-01-05] MEDS: ESCITALOPRAM OXALATE 20 MG TAB PO SCH (08:26)
[2018-01-05] MEDS: ESTRADIOL 1 MG TAB PO SCH (08:26)
[2018-01-05] MEDS: FAMOTIDINE 20 MG TAB PO SCH ×2 (08:26→22:02)
[2018-01-05] MEDS: NICOTINE 21 MG/24 HR PATCH T-DERMAL SCH (08:43)
--- NOTE | 2018-01-05 12:32 | HHI.PYPN ---
Subjective Chief Complaint: Suicide attempt by overdose Remarks Patient seen and examined with nurse. Chart reviewed. CIWA max in last 24 hours is 12, although this may be driven largely by anxiety. Case discussed with nursing staff who reports the patient was somewhat brighter this morning. Patient has been seen by the ostomy nurse. On my examination today, the patient remains a little bit psychomotor slowed. She is quite fretful. She expresses a good deal of shame about being unable to care for herself. She endorses some ongoing passive thoughts of . Denies side effects from medications. Complaining of some ongoing nausea and requests antiemetic. No other physical complaints. Review of Systems Except as stated in HPI: all other systems reviewed are Neg Mental Status Examination Appearance: Disheveled Consciousness: Alert Orientation: Person, Place (At least) Motor Activity: Other (Ongoing psychomotor slowing. No signs of withdrawal noted.) Speech: Slow Language: Adequate Fund of Knowledge: Adequate Attention and Concentration: Easily Distracted Memory: Unremarkable (Grossly intact on clinical exam) Mood: Anxious, Other (Depressed) Affect: Blunt Thought Process & Associations: Linear, Other (Somewhat slowed) Thought Content: Appropriate Hallucination Type: None Delusion Type: None Suicidal Ideation: No (Ongoing passive thoughts of ) Suicidal Plan: No Suicidal Intention: No (Contracts for safety on the inpatient unit) Homicidal Ideation: No Homicidal Plan: No Homicidal Intention: No Insight: Fair Judgment: Impulsive Results Labs Labs reviewed Vitals/IOs Vital Signs Date Time Temp Pulse Resp B/P (MAP) Pulse Ox O2 Delivery O2 Flow Rate FiO2 01/05/18 04:57 97.6 68 16 148/85 (106) 99 Assessment & Plan Problem List: (1) Bipolar disorder ICD Codes: F31.9 - Bipolar disorder, unspecified Status: Acute Assessment & Plan Titrate Latuda through the weekend to target bipolar depression. Add Atarax for anxiety. Continue CIWA scale for now but monitor to ensure this is not being given primarily for anxiety. Hospitalist input noted and appreciated. Ostomy nurse input noted and appreciated. Continue to monitor on the inpatient unit. Continue other medications and care as ordered. Justification for Cont. Inpt. Med changes. Monitoring for impairment in safety and self-care. Risk for decompensation in less restrictive environment. Discharge Planning Pending psychiatric stabilization Request HC Surrog/Guard Advoc?: No Problem Qualifiers (1) Bipolar disorder: Qualified Codes: F31.4 - Bipolar disorder, current episode depressed, severe, without psychotic features Moy Poe MD January 05, 2018 12:32
[2018-01-05] MEDS ORDERED: hydrOXYzine HCL 50 MG TAB PO PRN (12:45)
[2018-01-05] MEDS ORDERED: ONDANSETRON ODT 4 MG TAB PO PRN (12:45)
--- NOTE | 2018-01-05 13:55 | HHI.PR ---
Subjective Remarks Follow-up visit for Crohn's with colostomy, hypothyroidism, and UTI. Patient is seen and examined in her room in no acute distress. She reports she had a good night without acute concerns or complaints. Denies any fevers, chills, nausea, vomiting, abdominal pain, shortness of breath, cough or dysuria. Reports that the ostomy nurse stopped by yesterday and did change her colostomy , reports skin feels much better. She voices no acute complaints, discussed with nurse who does not have any concerns Objective Vitals Vital Signs Date Time Temp Pulse Resp B/P (MAP) Pulse Ox O2 Delivery O2 Flow Rate FiO2 01/05/18 04:57 97.6 68 16 148/85 (106) 99 01/04/18 17:53 98.5 66 17 115/61 (79) 99 Result Diagram: 01/03/18 1247 01/03/18 1247 Objective Remarks GENERAL: This is a well-nourished, well-developed patient, in no apparent distress. SKIN: No rashes. Cool and dry. Left shoulder dressing dry and intact EYES: Pupils equal round and reactive. NECK: Trachea midline. CARDIOVASCULAR: Regular rate and rhythm without murmurs, gallops, or rubs. RESPIRATORY: Clear to auscultation. Breath sounds equal bilaterally. No wheezes , rales, or rhonchi. GASTROINTESTINAL: Abdomen soft, non-tender, nondistended. No guarding. Right mid abdomen colostomy with prolapsed stoma/bowel. [place], moist with green liquid stool in bag. NEUROLOGICAL: Awake and alert, oriented times. Motor and sensory grossly within normal limits. Five out of 5 muscle strength in all muscle groups. Normal speech. A/P Assessment and Plan 62-year-old female with past medical history significant for Crohn's s/p ostomy , IBS, MVP, hypothyroidism, GERD and recently diagnosed schizophrenia who was admitted to [facility] on 12/31 after patient was found unconscious by sister who she lives with. She was admitted and placed in observation as well as under [place] act due to intentional overdose. During her stay at [facility] she was also treated for NILTON, transaminitis and UTI. She was cleared medically and transferred to [place] inpatient psychiatry for further evaluation. [facility] has been consulted to assist with medical management. Intentional overdose/schizophrenia -Medically cleared at [facility], psychiatric treatment by primary team greatly appreciated. Crohn's s/p colostomy -CBC reviewed and stable, BMP also stable -Ostomy nurse consulted, ostomy bag and wafer changed yesterday. -Will need to follow-up as outpatient with general surgery for stoma/bowel prolapse, voiced understanding. Hypothyroidism -Continue dose of levothyroxine -TSH 0.097, free T4 1.41 -Follow-up as outpatient E. coli UTI -Review of medical records, UA collected on 12/31+ for E. coli with meadows sensitivity -Patient asymptomatic, continue Macrobid with an date 01/06 DVT prophylaxis-ambulation Discussed with patient and nurse. [facility] will sign off, please reconsult if needed. Tra Nguyen January 05, 2018 13:55
[2018-01-05] MEDS: hydrOXYzine HCL 50 MG TAB PO PRN ×2 (14:47→22:08)
[2018-01-05] MEDS ORDERED: LURASIDONE 40 MG TAB PO ONE (18:00)
[2018-01-05] MEDS ORDERED: LURASIDONE 40 MG TAB PO SCH (18:00)
[2018-01-05] MEDS: REMOVE OLD NICOTINE PATCH T-DERMAL SCH (21:00)
[2018-01-06] MEDS: LEVOTHYROXINE SODIUM 100 MCG TAB PO SCH (06:15)
[2018-01-06] MEDS: hydrOXYzine HCL 50 MG TAB PO PRN ×2 (06:29→20:44)
[2018-01-06 06:38] VITALS: BP 152/83; PULSE 62; RESP 16; TEMP 98.2; O2SAT 98
[2018-01-06] MEDS: NICOTINE 21 MG/24 HR PATCH T-DERMAL SCH (09:00)
[2018-01-06] MEDS: ESCITALOPRAM OXALATE 20 MG TAB PO SCH (09:20)
[2018-01-06] MEDS: ESTRADIOL 1 MG TAB PO SCH (09:20)
[2018-01-06] MEDS: FAMOTIDINE 20 MG TAB PO SCH ×2 (09:20→20:44)
[2018-01-06] MEDS: NITROFURANTOIN MONOHYD MACROCR 100 MG CAP PO SCH (09:20)
[2018-01-06 11:30] VITALS: BP 127/70; PULSE 74; RESP 18
--- NOTE | 2018-01-06 13:34 | HHI.PYPN ---
Subjective Chief Complaint: Suicide attempt by overdose Remarks Patient was seen and case discussed with nursing. Patient's chief complaint today is nausea. She says she is not depressed however her affect is very flat. She is laying in bed. Psychomotor retardation, slow soft speech. She denies suicidal or homicidal ideation intent or plan. Keeps to herself Mental Status Examination Appearance: Disheveled Consciousness: Alert Orientation: Person, Place (At least) Motor Activity: Other (Ongoing psychomotor slowing. No signs of withdrawal noted.) Speech: Slow Language: Adequate Fund of Knowledge: Adequate Attention and Concentration: Easily Distracted Memory: Unremarkable (Grossly intact on clinical exam) Mood: Sad, Anxious Affect: Flat Thought Process & Associations: Linear, Other (Somewhat slowed) Thought Content: Appropriate Hallucination Type: None Delusion Type: None Suicidal Ideation: No (Ongoing passive thoughts of ) Suicidal Plan: No Suicidal Intention: No (Contracts for safety on the inpatient unit) Homicidal Ideation: No Homicidal Plan: No Homicidal Intention: No Insight: Fair Judgment: Impulsive Results Vitals/IOs Vital Signs Date Time Temp Pulse Resp B/P (MAP) Pulse Ox O2 Delivery O2 Flow Rate FiO2 01/06/18 11:30 74 18 127/70 (89) 01/06/18 06:38 98.2 98 Intake and Output 01/06/18 01/06/18 01/06/18 07:59 15:59 23:59 Intake Total 360 ml Balance 360 ml Assessment & Plan Problem List: (1) Bipolar disorder ICD Codes: F31.9 - Bipolar disorder, unspecified Status: Acute Assessment & Plan Add Phenergan for nausea Justification for Cont. Inpt. Patient would decompensate in a less restrictive setting Request HC Surrog/Guard Advoc?: No Problem Qualifiers (1) Bipolar disorder: Qualified Codes: F31.4 - Bipolar disorder, current episode depressed, severe, without psychotic features Salty Resendiz DO January 06, 2018 13:34
[2018-01-06] MEDS: PROMETHAZINE HCL 25 MG TAB PO PRN (14:17)
[2018-01-06] MEDS: LURASIDONE 80 MG TAB PO SCH (17:42)
[2018-01-06 18:12] VITALS: BP 148/74; PULSE 68; RESP 18; TEMP 98.8; O2SAT 98
[2018-01-06] MEDS: REMOVE OLD NICOTINE PATCH T-DERMAL SCH (20:29)
[2018-01-06] MEDS: LORazepam 1 MG TAB PO PRN (20:44)
[2018-01-07] MEDS: PROMETHAZINE HCL 25 MG TAB PO PRN ×2 (03:51→16:19)
[2018-01-07] MEDS: hydrOXYzine HCL 50 MG TAB PO PRN ×2 (05:16→10:36)
[2018-01-07 05:32] VITALS: BP 138/72; PULSE 62; RESP 18; TEMP 97.9; O2SAT 95
[2018-01-07] MEDS: LEVOTHYROXINE SODIUM 100 MCG TAB PO SCH (06:25)
[2018-01-07] MEDS: FAMOTIDINE 20 MG TAB PO SCH ×2 (08:09→20:45)
[2018-01-07] MEDS: ESCITALOPRAM OXALATE 20 MG TAB PO SCH (08:09)
[2018-01-07] MEDS: ESTRADIOL 1 MG TAB PO SCH (08:09)
[2018-01-07] MEDS: NICOTINE 21 MG/24 HR PATCH T-DERMAL SCH (09:00)
--- NOTE | 2018-01-07 12:28 | HHI.PYPN ---
Subjective Chief Complaint: Suicide attempt by overdose Remarks Patient was seen and case discussed with nursing. Patient's nausea has resolved with the Phenergan. However she remains seclusive to her bed. She discussed difficulty completing her ADLs and getting out of her bed at home. She was asked to go to psychotherapy group. Patient says her sleep is variable. She is anxious about her discharge and the various details. Affect is blunted. She denies suicidal or homicidal ideation intent or plan Mental Status Examination Appearance: Disheveled Consciousness: Alert Orientation: Person, Place (At least) Motor Activity: Other (Ongoing psychomotor slowing. No signs of withdrawal noted.) Speech: Slow Language: Adequate Fund of Knowledge: Adequate Attention and Concentration: Easily Distracted Memory: Unremarkable (Grossly intact on clinical exam) Mood: Sad, Anxious Affect: Blunt Thought Process & Associations: Linear, Other (Somewhat slowed) Thought Content: Appropriate Hallucination Type: None Delusion Type: None Suicidal Ideation: No (Ongoing passive thoughts of ) Suicidal Plan: No Suicidal Intention: No (Contracts for safety on the inpatient unit) Homicidal Ideation: No Homicidal Plan: No Homicidal Intention: No Insight: Fair Judgment: Impulsive Results Vitals/IOs Vital Signs Date Time Temp Pulse Resp B/P (MAP) Pulse Ox O2 Delivery O2 Flow Rate FiO2 01/07/18 05:32 97.9 62 18 138/72 (94) 95 Assessment & Plan Problem List: (1) Bipolar disorder ICD Codes: F31.9 - Bipolar disorder, unspecified Status: Acute Assessment & Plan Continue current treatment plan Justification for Cont. Inpt. Patient would decompensate in a less restrictive setting Request HC Surrog/Guard Advoc?: No Problem Qualifiers (1) Bipolar disorder: Qualified Codes: F31.4 - Bipolar disorder, current episode depressed, severe, without psychotic features Salty Resendiz DO January 07, 2018 12:28
[2018-01-07] MEDS: LORazepam 1 MG TAB PO PRN ×2 (16:19→20:45)
[2018-01-07 17:44] VITALS: BP 129/70; PULSE 69; RESP 16; TEMP 98.1; O2SAT 97
[2018-01-07] MEDS: LURASIDONE 80 MG TAB PO SCH (17:51)
[2018-01-07] MEDS: REMOVE OLD NICOTINE PATCH T-DERMAL SCH (21:00)
[2018-01-08] MEDS: LEVOTHYROXINE SODIUM 100 MCG TAB PO SCH (05:44)
[2018-01-08] MEDS: PROMETHAZINE HCL 25 MG TAB PO PRN ×2 (05:44→21:02)
[2018-01-08 06:23] VITALS: BP 124/63; PULSE 71; RESP 16; TEMP 98.1; O2SAT 98
[2018-01-08] MEDS: ESCITALOPRAM OXALATE 20 MG TAB PO SCH (08:14)
[2018-01-08] MEDS: ESTRADIOL 1 MG TAB PO SCH (08:14)
[2018-01-08] MEDS: FAMOTIDINE 20 MG TAB PO SCH ×2 (08:14→21:02)
[2018-01-08] MEDS: NICOTINE 21 MG/24 HR PATCH T-DERMAL SCH (08:16)
--- NOTE | 2018-01-08 10:09 | HHI.PYPN ---
Subjective Chief Complaint: Suicide attempt by overdose Remarks Patient seen and examined with nurse. Chart reviewed. CIWA score is being driven by anxiety without objective evidence of withdrawal. Discontinue CIWA. Case discussed with nursing staff. Patient noted to be somewhat isolative and anxious. Case discussed with counselor. On my examination today, the patient says "I am getting better." She says that she had some positive thoughts this morning although these have been replaced by more negative, brooding thoughts since then. No suicidal ideation reported. She does note that she has been getting out of her room more and going to movie group and fresh air. Affect is more reactive today and psychomotor slowing is decreasing. No side effects from medications. No physical complaints. Review of Systems Except as stated in HPI: all other systems reviewed are Neg Mental Status Examination Appearance: Other (Fair grooming and hygiene) Consciousness: Alert Orientation: Person, Place, Date/Time (Approximate), Situation Motor Activity: Other (Psychomotor slowing decreasing. No withdrawal signs noted. No motor abnormalities noted otherwise.) Speech: Other (Rate is approaching normal, and speech is normal in other respects) Language: Adequate Fund of Knowledge: Adequate Attention and Concentration: Easily Distracted Memory: Unremarkable Mood: Other (Mood is improving) Affect: Blunt (More reactive today) Thought Process & Associations: Intact, Linear Thought Content: Appropriate Hallucination Type: None Delusion Type: None Suicidal Ideation: No Homicidal Ideation: No Insight: Adequate Judgment: Adequate Results Labs Labs reviewed Vitals/IOs Vital Signs Date Time Temp Pulse Resp B/P (MAP) Pulse Ox O2 Delivery O2 Flow Rate FiO2 01/08/18 06:23 98.1 71 16 124/63 (83) 98 Assessment & Plan Problem List: (1) Bipolar disorder ICD Codes: F31.9 - Bipolar disorder, unspecified Status: Acute Assessment & Plan Patient is improving with current therapy. Titrate Latuda to 100 mg with dinner for further mood stabilization. Continue Lexapro as ordered. Discontinue CIWA scale. Continue to monitor on the inpatient unit. Continue other medications and care as ordered. Justification for Cont. Inpt. Medication changes. Risk for decompensation in less restrictive environment. Discharge Planning Anticipate discharge home, possibly with home health care if this benefit is provided by her insurer. Patient is requesting to be referred to a new outpatient mental health provider on discharge. Request HC Surrog/Guard Advoc?: No Problem Qualifiers (1) Bipolar disorder: Qualified Codes: F31.4 - Bipolar disorder, current episode depressed, severe, without psychotic features Moy Poe MD January 08, 2018 10:09
[2018-01-08] MEDS: hydrOXYzine HCL 50 MG TAB PO PRN ×2 (10:10→21:02)
[2018-01-08] MEDS: LURASIDONE 40 MG TAB PO SCH (18:03)
[2018-01-08] MEDS: REMOVE OLD NICOTINE PATCH T-DERMAL SCH (21:00)
[2018-01-09 04:00] VITALS: BP 121/58; PULSE 81; RESP 16; TEMP 98.4; O2SAT 97
[2018-01-09] MEDS: LEVOTHYROXINE SODIUM 100 MCG TAB PO SCH (06:44)
[2018-01-09] MEDS: NICOTINE 21 MG/24 HR PATCH T-DERMAL SCH (09:00)
[2018-01-09] MEDS: hydrOXYzine HCL 50 MG TAB PO PRN (09:25)
[2018-01-09] MEDS: ESTRADIOL 1 MG TAB PO SCH (09:25)
[2018-01-09] MEDS: ESCITALOPRAM OXALATE 20 MG TAB PO SCH (09:25)
[2018-01-09] MEDS: FAMOTIDINE 20 MG TAB PO SCH ×2 (09:28→21:00)
--- NOTE | 2018-01-09 11:35 | HHI.PYPN ---
Subjective Chief Complaint: Suicide attempt by overdose Remarks Patient seen and examined. Chart reviewed. Case discussed with nursing staff who notes patient still requires some prompting with personal care. Case discussed in treatment team. Therapists note that patient has just started coming out for groups. Treatment team feels patient might benefit from increased opportunities offered for socialization at, e.g. an [facility]. I have suggested this to the patient on my examination today, but she is not interested in any sort of placement. Affect seems brighter on exam today. Psychomotor slowing continues to decrease. She complains of some anxiety but feels that her current dose of Atarax may be making her somewhat foggy-headed. She does seem somewhat fretful and seems to struggle with ambivalence and indecisiveness. She denies SI/HI. Denies AVH. Some passive/dependent traits noted. No other side effects from medications. No physical complaints. Review of Systems Except as stated in HPI: all other systems reviewed are Neg Mental Status Examination Appearance: Other (Fair) Consciousness: Alert Orientation: Person, Place (At least) Motor Activity: Other (Psychomotor slowing continues to decrease.) Speech: Unremarkable Language: Adequate Fund of Knowledge: Adequate Attention and Concentration: Easily Distracted Memory: Unremarkable Mood: Anxious (Mild) Affect: Other (More full and reactive today) Thought Process & Associations: Intact, Linear Thought Content: Appropriate Hallucination Type: None Delusion Type: None Suicidal Ideation: No Homicidal Ideation: No Insight: Adequate Judgment: Adequate Results Labs Labs reviewed Vitals/IOs Vital Signs Date Time Temp Pulse Resp B/P (MAP) Pulse Ox O2 Delivery O2 Flow Rate FiO2 01/09/18 04:00 98.4 81 16 121/58 (79) 97 Intake and Output 01/09/18 01/09/18 01/10/18 08:00 16:00 00:00 Intake Total 360 ml Balance 360 ml Assessment & Plan Problem List: (1) Bipolar disorder ICD Codes: F31.9 - Bipolar disorder, unspecified Status: Acute Assessment & Plan I have suggested that the patient consider titration of Latuda to target residual depressive symptoms, but she has declined. Continue Latuda as ordered. Continue Lexapro as ordered. I will decrease the dose of patient's Atarax given complaints noted above. Continue to monitor on inpatient unit. Continue other medications and care as ordered. Justification for Cont. Inpt. Medication changes. Discharge Planning Possible discharge home in the next 1-2 days. Patient is presently declining assisted living placement. She also declines home health care referral when I suggested it to her today. Request HC Surrog/Guard Advoc?: No Problem Qualifiers (1) Bipolar disorder: Qualified Codes: F31.4 - Bipolar disorder, current episode depressed, severe, without psychotic features Moy Poe MD January 09, 2018 11:35
[2018-01-09] MEDS ORDERED: hydrOXYzine PAMOATE 25 MG CAP PO PRN (12:15)
--- NOTE | 2018-01-09 13:26 | PD.TTN ---
Patient Problems 1. Discharge planning 2. Medication compliance 3. Knowledge deficit 4. Lack of coping skills Progress Toward Goals Provider Present: Dr. Tang Poe Provider Input: Titrated Latuta. Nurse(s) Input: Appropiate with Staff, Patient complains of anxiety, somatic, helpless and hopeless. Psychiatric Counselors Present: Fiona Bryan LCSW, Angi Issa, [facility], Moe Peña Jr., [facility] Psych Therapist Input: Has place to go, depressed. slowly improving. Group Spec/RT/OT/WHITTAKER Present: EUN Santoyo, Moncho Harden, OT Group Spec/RT/OT/WHITTAKER Input: Pt attends select group activities, appropiate in groups, follow rules, engages in projects, able to complete simple taskes. Discharge Plan To be determined Documentation Scribe: Sana Ugarte January 09, 2018 13:26
[2018-01-09 18:24] VITALS: BP 126/72; PULSE 71; RESP 18; TEMP 98.6; O2SAT 98
[2018-01-09] MEDS: LURASIDONE 40 MG TAB PO SCH (18:34)
[2018-01-09] MEDS: REMOVE OLD NICOTINE PATCH T-DERMAL SCH (21:00)
[2018-01-10 05:58] VITALS: BP 134/65; PULSE 62; RESP 15; TEMP 98.1; O2SAT 97
[2018-01-10] MEDS: LEVOTHYROXINE SODIUM 100 MCG TAB PO SCH (06:00)
[2018-01-10] MEDS: ESCITALOPRAM OXALATE 20 MG TAB PO SCH (08:39)
[2018-01-10] MEDS: FAMOTIDINE 20 MG TAB PO SCH (08:39)
[2018-01-10] MEDS: NICOTINE 21 MG/24 HR PATCH T-DERMAL SCH (09:00)
[2018-01-10] MEDS ORDERED: BENZ0.5T PO (09:08)
[2018-01-10] MEDS ORDERED: LURA40 PO (09:08)
[2018-01-10] MEDS ORDERED: LEVO.1 PO (09:08)
--- NOTE | 2018-01-10 09:10 | HHI.DS ---
Psychiatry Discharge Summary Inpatient Psychiatric care?: Yes Advance Directive: No Reason Not Provided: pt doesnt have one Mental Health AdvanceDirective: No Health Care Proxy: No Admission Admission Date January 02, 2018 at 21:30 Admission Diagnosis: (1) Bipolar disorder ICD Code: F31.9 - Bipolar disorder, unspecified Brief History Ms. Perera is a 62-year-old female sent in transfer from [facility] under [place] [facility] following suspected opioid overdose. Documentation from outside hospital reviewed. Reviewing the electronic medical record, I note the patient was admitted under my care in August 2016/September 2016; she left AGAINST MEDICAL ADVICE at that time. Patient seen and examined with nurse. Chart reviewed. Case discussed with nursing staff. On my examination today, the patient presents as fairly dysphoric and withdrawn. She reports that her mood destabilized as outpatient provider was tapering her off of Risperdal secondary to intolerable nausea associated with this medication. She reports several psychosocial stressors including health problems of her own and her son, who is reportedly dying from liver issues. She notes "my whole life is screwed up. It's hard to live. I wanna ." She contracts for safety on the inpatient unit. Regarding her presenting overdose, she says she took oxycodone and "I just kept taking them." She had been thinking about suicide for the last few days off and on and "my mind just kept saying to do it." In addition to low mood, the patient reports impaired concentration, decreased self-care and social withdrawal. She is also fairly psychomotor slowed. I can elicit no hypomanic or manic symptoms. She denies any audiovisual hallucinations. I can elicit no delusional beliefs. She does complain of some anxiety. Remainder of the psychiatric ROS is negative. No acute physical complaints. Past psychiatric history: Patient reports a history of bipolar disorder and schizophrenia. She is treated on an outpatient basis by Dr. Whalen. Most recent psychiatric admission was here at [place]. She denies a history of previous suicide attempts. Family history: The patient reports a family history of bipolar disorder and notes that 3 members of her family have by suicide. Chemical dependency history: The patient denies any abuse of drugs or alcohol. Social history: The patient reports that she lives with her sister. She is and has a son. She has high school educated. She is on SSI. She denies any legal history. Denies any history. Denies any access to guns or firearms. She is a [employer]. She denies any history of abuse. Tobacco Use In Past 30 Days: Cigarettes But Not Daily Alcohol Use: Monthly or Less Hospital Course Patient was admitted to a locked, inpatient psychiatric unit. A general medical consultation was obtained. A wound care/ostomy nurse consultation was obtained for management of patient's ostomy. Appropriate precautions were in place throughout patient's hospital stay. Patient was seen and examined on the unit by psychiatry and also visited by counselor. Psychotropic medications were adjusted. Patient had improvement in presenting psychiatric symptomatology during the course of her hospital stay. There was no evidence of any suicidality or homicidality on the inpatient unit. Self-care improved with the benefit of psychopharmacologic treatment. Patient remained medication compliant and in good behavioral control. On the day of discharge: Patient seen and examined. Chart reviewed. Case discussed with nursing staff. No behavioral issues noted overnight. Case discussed with counselor. On my examination today, the patient is requesting discharge from the inpatient psychiatric unit today. Affect is bright and fairly full and reactive. I can elicit no severe depressive or hypomanic/manic symptoms. She denies any suicidal or homicidal ideation, intent or plan and contracts for safety. She denies any audiovisual hallucinations. I can elicit no delusional material. There is no evidence of any impairment in reality construction. She denies side effects from medications besides some mild tremor. She does have some slight cog-wheeling on exam. I have prescribed a small dose of p.r.n. Cogentin on discharge for management of possible EPS and educated patient on the use of this medication as well as the R/B/A. No other physical complaints. Suicide and violence risk assessment on day of discharge both suggest lower imminent risk from mental illness, and the patient's level of function is adequate for outpatient care. I will discharge the patient home with home psychiatric nursing. Psychiatric follow-up as arranged by counselor. Patient is also to follow up with primary care. I have counseled the patient to abstain from substances of abuse. I have counseled the patient regarding warning signs for need to return to the psychiatric emergency room as part of a general safety plan. Results Blood Pressure 134 / 65 Vital Signs Date Time Temp Pulse Resp B/P (MAP) Pulse Ox O2 Delivery O2 Flow Rate FiO2 01/10/18 05:58 98.1 62 15 134/65 (88) 97 Laboratory Tests Test 01/03/18 12:47 White Blood Count 5.7 TH/MM3 Red Blood Count 4.16 MIL/MM3 Hemoglobin 12.4 GM/DL Hematocrit 36.9 % Mean Corpuscular Volume 88.8 FL Mean Corpuscular Hemoglobin 29.9 PG Mean Corpuscular Hemoglobin Concent 33.7 % Red Cell Distribution Width 13.5 % Platelet Count 226 TH/MM3 Mean Platelet Volume 7.9 FL Neutrophils (%) (Auto) 73.7 % Lymphocytes (%) (Auto) 17.8 % Monocytes (%) (Auto) 5.6 % Eosinophils (%) (Auto) 1.8 % Basophils (%) (Auto) 1.1 % Neutrophils # (Auto) 4.2 TH/MM3 Lymphocytes # (Auto) 1.0 TH/MM3 Monocytes # (Auto) 0.3 TH/MM3 Eosinophils # (Auto) 0.1 TH/MM3 Basophils # (Auto) 0.1 TH/MM3 CBC Comment DIFF FINAL Differential Comment Blood Urea Nitrogen 11 MG/DL Creatinine 0.90 MG/DL Random Glucose 113 MG/DL Total Protein 6.1 GM/DL Albumin 3.1 GM/DL Calcium Level 9.1 MG/DL Alkaline Phosphatase 96 U/L Aspartate Amino Transf (AST/SGOT) 28 U/L Alanine Aminotransferase (ALT/SGPT) 54 U/L Total Bilirubin 0.2 MG/DL Sodium Level 141 MEQ/L Potassium Level 3.7 MEQ/L Chloride Level 110 MEQ/L Carbon Dioxide Level 25.5 MEQ/L Anion Gap 6 MEQ/L Estimat Glomerular Filtration Rate 63 ML/MIN Free Thyroxine 1.41 NG/DL Thyroid Stimulating Hormone 3rd Gen 0.097 uIU/ML Summary of Procedures None done Imaging None done Pending results at discharge: No Medications # of Antipsychotic meds at D/C: 1 Approp Antipsych med options 1 - Minimum of three failed multiple trials of monotherapy. 2 - Documented plan to taper to monotherapy due to previous use of multiple meds OR cross-taper in progress at D/C. 3 - Documentation of augmentation of Clozapine. 4 - Justification other than those listed in allowable values 1-3, document here : Discharge Discharge Date: January 10, 2018 Discharge Diagnosis: (1) Bipolar affective disorder, depressed in partial remission Diagnosis: Principal ICD Code: F31.75 - Bipolar disorder, in partial remission, most recent episode depressed Pt Condition on Discharge: Stable Discharge Disposition: Disch w/ Home Health Serv Discharge Instructions Diet Instructions: As Tolerated, No Restrictions Activities you can perform: Weight Bearing as Araceli Scheduled Appointment: As per counselors notes New Orders: COMP MET PROF (CMP) - 1 Week New Medications: Benztropine (Benztropine) 0.5 Mg Tab 0.5 MG PO BID PRN for EXTRA PYRAMIDAL SYMPTOMS for 15 Days, #30 TAB 1 Refill Levothyroxine (Synthroid) 100 Mcg Tab 100 MCG PO DAILY@0600 for Thyroid for 15 Days, TAB 1 Refill Lurasidone (Latuda) 40 Mg Tab 100 MG PO WITH DINNER for Mental Health for 15 Days, #38 TAB 1 Refill Continued Medications: Uoicqwlhcz-Kzxhzkqufewwn-Hrivzyyw (Fioricet) 50-300-40 Mg Cap 1 CAP PO Q4H PRN for HEADACHE, CAP 0 Refills Escitalopram (Escitalopram) 20 Mg Tab 20 MG PO DAILY, #30 TAB 0 Refills Estradiol (Estradiol) 1 Mg Tab 1 MG PO DAILY for Estrogen Supplements, #30 TAB 0 Refills Famotidine (Famotidine) 20 Mg Tab 20 MG PO BID, #60 TAB 0 Refills Discontinued Medications: Alprazolam (Alprazolam) 0.25 Mg Tab 0 PO Q8H PRN for ANXIETY, TAB 0 Refills Diazepam (Diazepam) 2 Mg Tab 0 PO Q4HR, TAB 0 Refills Nitrofurantoin Monohydrate Macrocrystals (Nitrofurantoin Monohydrate Macrocrystals) 100 Mg Cap 100 MG PO BID for Infection, CAP 0 Refills Discharge Time <= 30 minutes Mental Status Examination Appearance: Appropriate Consciousness: Alert Orientation: x4 Motor Activity: Other (No objective hand tremor, no dystonias, no dyskinesias. Mild cogwheeling. Psychomotor slowing is considerably improved versus admission.) Speech: Unremarkable Language: Adequate Fund of Knowledge: Adequate Attention and Concentration: Adequate Memory: Unremarkable Mood: Appropriate Affect: Appropriate (Much more full and reactive versus admission) Thought Process & Associations: Intact, Logical, Goal directed, Linear Thought Content: Appropriate Hallucination Type: None Delusion Type: None Suicidal Ideation: No Suicidal Plan: No Suicidal Intention: No Homicidal Ideation: No Homicidal Plan: No Homicidal Intention: No Insight: Adequate Judgment: Adequate Discharge/Advance Care Plan Health Problems: (1) Bipolar disorder Goals to promote your health * To prevent worsening of your condition and complications * To maintain your health at the optimal level Directions to meet your goals Take your medications as prescribed Follow your dietary instruction Follow activity as directed Keep your appointments as scheduled Take your immunizations and boosters as scheduled If your symptoms worsen call your PCP, if no PCP go to Urgent Care Center or Emergency Room For 27/03 questions related to your inpatient stay or results of tests pending at discharge, please contact Dr. Moy Poe at Smoking is Dangerous to Your Health. Avoid second hand smoking Problem Qualifiers (1) Bipolar disorder: Qualified Codes: F31.4 - Bipolar disorder, current episode depressed, severe, without psychotic features Moy Poe MD January 10, 2018 09:10
--- NOTE | 2018-01-10 09:10 | HHI.FF ---
Face to Face Verification Diagnosis: (1) Bipolar disorder Home Health Nursing Order: Signs/symptoms of disease process Nursing assessment with vital signs Instructions: Home psychiatric nursing. I have seen patient Emeli Perera on 01/10/18. My clinical findings support the need for the requested home health care services because: Need for psychosocial assistance I certify that my clinical findings support that this patient is homebound because: Need for psychosocial assistance Moy Poe MD January 10, 2018 09:10
[2018-01-10] MEDS: ESTRADIOL 1 MG TAB PO SCH (11:06)
== END 2018-01-10 14:50 | disposition home health service (06) | DRG 885 ==
LOC: H260 21:30 → H4EA 01-09 16:54
PROVIDERS: ADMIT Psychiatry & Neurology Psychiatry; ATTEND Psychiatry & Neurology Psychiatry
DX: F31.4 Bipolar disorder, current episode depressed, severe, without psychotic features (principal); K50.90 Crohn's disease, unspecified, without complications; N39.0 Urinary tract infection, site not specified; F41.9 Anxiety disorder, unspecified; T40.2X2A Poisoning by other opioids, intentional self-harm, initial encounter; B96.20 Unspecified Escherichia coli [E. coli] as the cause of diseases classified elsewhere; K21.9 Gastro-esophageal reflux disease without esophagitis; F20.9 Schizophrenia, unspecified; E03.9 Hypothyroidism, unspecified; F17.210 Nicotine dependence, cigarettes, uncomplicated; Z81.8 Family history of other mental and behavioral disorders; Z43.3 Encounter for attention to colostomy
CPT/HCPCS: 80053; 84439; 84443; 85025; 93005; Q0169; Q0177